=== PATIENT | female | born 1965 | race Caucasian/White ===

== ENCOUNTER → 2016-06-18 | Outpatient (CLI) | payer BC ==
--- NOTE | 2016-06-18 19:36 | PN ---
DATE OF SERVICE: 06/18/2016 51-year-old lady who [facility] of extremely severe obstructive sleep apnea/hypopnea syndrome. Apnea-hypopnea index 96.4 with oxygen desaturation to 57.7%. Recent titration done in March 2016. It was done with a CPAP and BiPAP. It was not easy titration. Patient continued to have abnormalities of respiration, but the best result was reached at the pressure of 12 cm of water. At that pressure, apnea-hypopnea index reduced to 2.1 with oxygen level above 91.5% and the patient was at that pressure for 22.5 minutes in non-REM sleep and 6.5 minutes in REM sleep. That pressure had been ordered for patient's CPAP unit. Today she came with her CPAP unit. CPAP pressure in the unit is 12 cm of water. I checked her CPAP usage. For more than 4 hours it is 15 out of 30 nights. Leak from the mask is 13 L/min, which is borderline. REM is in auto regimen. Apnea-hypopnea index reading from the machine is 28.5, which is in high range. Patient feels better while she is using her machine. She feels more energy. [place] Sleepiness Scale still increased to 11 today. MEDICATIONS: Cymbalta, Xanax, Pravastatin, Abilify. PHYSICAL EXAMINATION: GENERAL: During physical exam, the patient in no distress. VITAL SIGNS: BP 125/80, HR 102, RR 18, weight 213.4. Temp 98.1. Oxygen saturation at room air 94%. HEENT: PERRLA, EOMI. Evaluation of oropharynx showed extremely low position of soft palate. NECK: Supple. No JVD. Thyroid is not palpable. LUNGS: Clear to percussion and to auscultation. Good air exchange. No wheezing or rhonchi. HEART: S1, S2 regular. No murmurs, gallops or rubs. ABDOMEN: Obese. Soft and nontender. Bowel sounds are present. No organomegaly appreciated. EXTREMITIES: No clubbing or cyanosis. STONE DECORATOR: Awake, alert, and oriented x3. Cranial nerves 2 to 7 intact. There is no fasciculation or atrophy noted. No focal deficits observed. IMPRESSION: 1. Extremely severe obstructive sleep apnea/hypopnea syndrome, improved on CPAP at 12 cm of water, but patient still has respiratory abnormalities by reading from the machine, index 28.5 with a central is 15.01. Patient, although, feels better during this sleep and better during the day versus treatment without machine. Amount of her respiratory events comparing with diagnostic sleep study reduced 3 times. 2. Obesity. 3. Hypertension. 4. Hypothyroidism. 5. Acid reflex. 6. Anxiety. 7. Allergies. 8. Back problem. Patient is preparing for back surgery. PLAN: 1. I adjusted regimen in the machine in automatic regimen of CPAP in the range of pressure from 5 to 20 cm of water. I left ramp in automatic regimen at the same regimen as before. 2. Patient will continue to use CPAP every night for the whole night. She prefers to take her CPAP equipment with her to the hospital if she goes for the surgery for her back. 3. No driving if feeling any sleepiness. 4. Follow-up visit in one month to recheck her response on treatment with the machine, if no improvements we may switch patient to the BiPAP machine. She may need treatment with BiPAP in ST mode because she still has central apneas. In that case, we may consider to repeat titration with BiPAP with ST mode. Thank you very much for allowing me to participate in the management of your patient. Sincerely, Donaldo Gutiérrez MD, PhD, FAASM. Diplomat of [employer], Sleep Medicine Board by [employer] [facility] [place]
== END | disposition home or self-care (01) ==
LOC: SLEEP 15:42
PROVIDERS: ATTEND Internal Medicine
DX: G47.33 Obstructive sleep apnea (adult) (pediatric) (principal); E66.9 Obesity, unspecified; I10 Essential (primary) hypertension; E03.9 Hypothyroidism, unspecified; K21.9 Gastro-esophageal reflux disease without esophagitis; F41.9 Anxiety disorder, unspecified; Z79.899 Other long term (current) drug therapy; Z91.09 Other allergy status, other than to drugs and biological substances

== ENCOUNTER 2016-07-01 11:45 | Inpatient (IN) | payer BC ==
[2016-07-09 12:13] VITALS: BMI 33.3
[2016-07-15] MEDS ORDERED: BACITRACIN 50,000 UNIT, POLYMYXIN B 500,000 UNIT in SODIUM CHLORIDE 0.9% IRRIGATIO 1,00... IRRIGATION ONE (05:00)
[2016-07-15] MEDS ORDERED: ceFAZolin 2 GM in SODIUM CHLORIDE 0.9% 100 ML IVPB ONE (05:00)
[2016-07-15] MEDS ORDERED: DEXAMETHASONE SOD PHOSPHATE 10 MG/ML 1 ML VIAL IV ONE (05:55)
[2016-07-15] MEDS ORDERED: MIDAZOLAM 2 MG/2 ML VIAL IV PRN (05:55)
[2016-07-15] MEDS ORDERED: LACTATED RINGERS 1,000 ML IV SCH (05:55)
[2016-07-15] MEDS ORDERED: ONDANSETRON 4 MG/2 ML VIAL IVP ONE (05:55)
[2016-07-15] MEDS ORDERED: SCOPOLAMINE 1.5MG/72HR PATCH TRANSDERM STA (10:33)
[2016-07-15] MEDS ORDERED: LIDOCAINE 1% 20 ML VIAL (10MG/ML) FOR IV START INTRADERMA ONE (10:45)
[2016-07-15] MEDS ORDERED: GLYCOPYRROLATE 0.2 MG/ML 2 ML VIAL ONE (11:55)
[2016-07-15] MEDS ORDERED: SODIUM CHLORIDE 0.9% IRRIG 1,000 ML BTL IRRIGATION ONE (11:55)
[2016-07-15] MEDS ORDERED: HYDROmorphone (PF) 1 MG/ML ONE (11:55)
[2016-07-15] MEDS ORDERED: MIDAZOLAM 2 MG/2 ML VIAL ONE (11:55)
[2016-07-15] MEDS ORDERED: LIDOCAINE 1% INJ 10MG/ML (20 ML MDV) ONE (11:55)
[2016-07-15] MEDS ORDERED: PROPOFOL 10 MG/ML 20 ML VIAL IV ONE (11:55)
[2016-07-15] MEDS ORDERED: SUCCINYLCHOLINE CHLORIDE 100 MG/5 ML SYR IV ONE (11:55)
[2016-07-15] MEDS ORDERED: PHENYLEPHRINE-0.9% NACL SYG 1 MG/10 ML SYRINGE ONE (11:55)
[2016-07-15] MEDS ORDERED: HEPARIN SODIUM,PORCINE 10,000 UNIT/ML 1 ML VIAL ONE (11:55)
[2016-07-15] MEDS ORDERED: fentaNYL (PF) 50 MCG/ML 2 ML AMP ONE (11:55)
[2016-07-15] MEDS ORDERED: GELATIN SPONGE,ABSORB (LARGE) 1 EACH SPONGE TOPICAL ONE (12:31)
[2016-07-15] MEDS: BUPIVACAINE LIPOSOME/PF 1.3% 20 ML, BUPIVACAIN-EPI 0.5%-1:200,000 25 ML, SODIUM CHLORID... MISCELLANE ONE ×6 (12:32→14:34)
[2016-07-15] MEDS ORDERED: LIDOCAINE 0.5%-EPI 1:200,000 50 ML VIAL SQ ONE (12:32)
[2016-07-15] MEDS ORDERED: THROMBIN (BOVINE) 5,000 UNIT VIAL MISCELLANE ONE (12:32)
[2016-07-15] MEDS ORDERED: LACTATED RINGERS 1,000 ML IV ONE (13:00)
--- NOTE | 2016-07-15 14:52 | XR ---
Fluoroscopy History: Lumbar laminectomy and fusion Paper images demonstrate lumbar laminectomy pedicular screws at L4-5. Intervertebral body spacers in place. Alignment appears near anatomic.lumbar fusion, 1min 20sec fl time
--- NOTE | 2016-07-15 15:20 | P.OP ---
Date of Procedure: 07/15/16 Preoperative Diagnosis: Spinal stenosis L4 5, degenerative disc disease L4 5, herniated nucleus pulposis L4 5, Postoperative Diagnosis: Same Anesthesia: GETA Pathology: none sent Condition: stable Disposition: PACU Description of Procedure: DESCRIPTION OF PROCEDURE(S): BRIEF OPERATIVE NOTE Preoperative Diagnosis: Spinal stenosis L4 5, degenerative disc disease L4 5, herniated nucleus pulposis L4 5, Postoperative Diagnosis: Same Procedure: Minimally invasive Laminectomy and decompression L4 5 Minimally invasive Posterior facet fusion L4 5 Minimally invasive Transforaminal lumbar interbody fusion for a 360 fusion Discectomy for decompression L4 5 Placement of interbody graft L4 5 Bone marrow aspiration using a bone marrow aspirate Device Through a separate fascial incision Local autogenous bone grafting Use of Cell Saver Use of bone graft extenders Surgeon: Dr. Galdamez Disability Benefits Specialist: Lucas James is present throughout the entire the case persistence during positioning, dissection, exposure, visualization, and all crucial elements of the case as well as closure. Anesthesia: General anesthesia per Dr. Jones Estimated blood loss: Approximately 100 mL Complications: None apparent Components implanted: K2M minimally invasive [place] pedicle screw system with 2 rods and 1 peek interbody cage with 1 osteoamp allograft sponge Disposition: To recovery room in good stable condition. OPERATIVE INDICATIONS The patient has had long-standing issues in their lower back and lower extremities. The patient has severe disc degeneration at L4 5 with evidence of herniation and stenosis which correlates well with her back and lower extremity symptoms. The patient has been through conservative treatment. She is not having any lasting benefit despite aggressive conservative treatment. At L4 5 We discussed various treatment options including surgery, and the patient wishes to proceed with surgery We discussed the risk, patient's alternatives and benefits of surgery including but not limited to, risk of bleeding risk of infection, risk of need for further surgery, risk of decreased, loss of motion, muscle function, malunion nonunion, hardware failure, nerve damage, paralysis, heart attack, blindness and . OPERATIVE SUMMARY After discussing all the risks, patient alternatives and benefits at length, the patient elected to proceed with surgical intervention, signed informed consent, and presented for their procedure. The patient was seen and examined in the preoperative holding area and the surgical site was marked. The patient was given antibiotics and brought to the operating room. The patient was sedated and intubated by anesthesia in standard fashion. The patient was positioned on to the operating room table in a prone position on the appropriate frame which was well-padded and well molded. We were careful to pad any bony prominences and pressure points. We were careful to maintain the patient's cervical spine and good neutral alignment and position throughout. The patient was prepped and draped in a normal standard fashion. An appropriate timeout and keystone protocol performed. We were able to proceed with the surgery. The local wound area was infiltrated with local anesthetic. I was able utilize C-arm guidance to establish appropriate position over the pedicles bilaterally at the appropriate levels. With the appropriate levels confirmed was able to make small stab incisions over the appropriate pedicle sites bilaterally. Utilizing C-arm in his house able to establish a Jamshidi needle over the lateral aspect of the pedicle and advanced the trocar into the pedicle being careful not to breech superiorly inferiorly medially or laterally. Position was confirmed regularly with AP and lateral images on C- arm. I was able to establish the trocar into the pedicle appropriately into the posterior aspect of the vertebral body bilaterally at the appropriate levels of L4 and 5 bilaterally. This was done at each of the pedicle positions and each of the vertebrae. I was able place the guidewire into the trocar and into the vertebral body appropriately under C-arm guidance. Dissection was taken down over the wire to the appropriate starting position for the screw placed. The appropriate length screw was chosen, threaded over the guidewire and screwed appropriately into the pedicle and vertebral body under C-arm guidance in excellent alignment and position with good bony purchase. This is done at each of the screw sites at the appropriate levels of L4 5. On the left side at the iliac crest through a separate fascial incision I was able to place the bone marrow aspirate device and place it into the iliac crest and withdraw bone marrow aspirate which was placed over the allograft bone graft for use later in the case. With the screws intact I extended the incision to connect the screw hole sites on the most symptomatic side on the left at L4 5. I dissected down to establish access over the pars and lamina to the base of the spinous process. I was able to expose the facet joint. The capsule the facet was taken down and showed some facet arthrosis at the joint. I was able to use a combination of curettes and Kerrison rongeurs and a high-speed drill to take down the facet joint and do a facetectomy. Partial laminectomy was also performed. I was able get excellent foraminal decompression and central decompression with undermining across midline to perform a laminectomy centrally and contralaterally. As able get good central decompression. The ligamentum flavum was taken down to further decompress centrally and at bilateral neural foramen. I was able to expose the disc space and visualize the traversing nerve root. No was made of some disc protrusion at the level causing further compression of the nerve root. I was able to establish a annulotomy at the appropriate level protecting soft tissue and neural structures. No was made of some severe disc desiccation at the disc. I performed a complete discectomy with accommodation of curettes and rasps and scrapers. I was able get good endplate preparation at the disc space. I sized for the appropriate size interbody spacer protecting the soft tissue and neural structures. The wound was copiously irrigated and suctioned dry. There is no evidence of any dural tear or leak. I was able to pack the disc space with local autogenous bone graft as well as a small amount of ostial amp which was also placed into the interbody cage itself. Protecting the soft tissue structures and neural structures I was able place the interbody cage in good alignment and good position with good fit and fill at the interbody space. His issues was confirmed with C-arm guidance. Good hemostasis maintained. There is no evidence of any dural tear or leak. The wound was irrigated and suctioned dry. With the hardware intact, intraoperative C-arm imaging was again taken which showed good alignment and position of the hardware at the appropriate levels. We were then able to measure, contour and place the rods and appropriate hardware bilaterally. I was able to place capcrews, tighten them down, and shear them off appropriately. The sheared portion was counted and accounted for. With this intact I was able to place the local autogenous bone graft with additional bone graft enhancer as necessary into the decorticated facet joint. The remainder of the infuse was placed over the facet joint on the contralateral side after taking down the facet joint capsule. With the bone graft intact, a stable construct, and good decompression at the appropriate levels, we were able to proceed with closure. Good hemostasis was maintained. There is no evidence of dural tear or leak. The fascia was closed for a watertight closure. he subcuticular tissue was closed with absorbable suture. The wound was cleaned and dried and dressed with the appropriate dressing. The drapes were broken down. The patient was gently rolled back onto their hospital bed being careful to maintain their cervical spine and good neutral alignment and position. They were woken up by anesthesia, extubated, and brought to the recovery room in good stable condition. The patient will be admitted to the hospital for appropriate postoperative care , medical management and monitoring. We will continue to follow them closely about the postoperative course.
[2016-07-15] MEDS ORDERED: BENZOCAINE/MENTHOL LOZENG 1 EACH LOZENGE MUCOUS MEM PRN (15:21)
[2016-07-15] MEDS ORDERED: HYDROmorphone 1 MG/ML 1 ML SYRINGE IVP PRN (15:21)
[2016-07-15] MEDS ORDERED: HYDROcodone/APAP 5-325MG 1 EACH TAB PO PRN ×2 (15:21)
[2016-07-15] MEDS ORDERED: ALPRAZolam 0.5 MG TAB PO PRN (15:24)
[2016-07-15] MEDS ORDERED: HYDROcodone/APAP 10-325MG 1 EACH TAB PO PRN (15:24)
[2016-07-15] MEDS: HYDROmorphone 1 MG/ML 1 ML SYRINGE IVP PRN ×3 (16:16→21:10)
[2016-07-15] MEDS: SODIUM CHLORIDE 0.9% 1,000 ML IV SCH (19:06)
[2016-07-15] MEDS: ceFAZolin 2 GM in SODIUM CHLORIDE 0.9% 100 ML IVPB SCH (21:16)
[2016-07-16] MEDS: HYDROmorphone 1 MG/ML 1 ML SYRINGE IVP PRN (04:24)
[2016-07-16] MEDS: ceFAZolin 2 GM in SODIUM CHLORIDE 0.9% 100 ML IVPB SCH (04:46)
[2016-07-16] MEDS: SODIUM CHLORIDE 0.9% 1,000 ML IV SCH ×2 (06:09→11:09)
[2016-07-16] MEDS: ONDANSETRON 4 MG/2 ML VIAL IVP PRN ×2 (06:31→11:01)
[2016-07-16 07:23] LABS: Basophils # (A) 0.1 k/uL (0-0.2); Basophils % (A) 1 %; CH 32.1; CHCM 32.4; Eosinophils % (A) 0 %; HCT 45.4 % (34.0-46.0); HDW 2.61; HGB 14.4 gm/dL (11.4-16.0); Luc # (Auto) 0.19; Luc % (Auto) 1; Lymphocytes # (A) 1.3 k/uL (1.0-4.8); Lymphocytes % (A) 9 %; MCH 31.7 pg (25.0-35.0); MCHC 31.8 g/dL (31.0-37.0); MCV 99.6 fL (80.0-100.0); Mean Platelet Volume 8.1; Monocytes # (A) 0.6 k/uL (0-1.0); Monocytes % (A) 4 %; Neutrophils # (A) 11.7 k/uL (1.3-7.7); Neutrophils % (A) 85 %; RBC 4.56 m/uL (3.80-5.40); RDW 13.5 % (11.5-15.5); WBC 13.9 k/uL (3.8-10.6); WBC (Perox) 14.54
[2016-07-16 07:41] LABS: Anion Gap 7 mmol/L; Blood Urea Nitrogen 13 mg/dL (7-17); Calcium 9.1 mg/dL (8.4-10.2); Carbon Dioxide 30 mmol/L (22-30); Chloride 105 mmol/L (98-107); Glucose 109 mg/dL (74-99); Non-African American GFR(MDRD) 59 (>60 ml/min/1.73 sqM); Potassium 4.5 mmol/L (3.5-5.1); Sodium 142 mmol/L (137-145)
--- NOTE | 2016-07-16 10:16 | P.PN ---
Progress Note - Text Postoperative day #1 Patient is seen and examined today at bedside. The patient has some pain around the surgical site as expected. Pain is being controlled with medication. She has not come out of bed but feels she'll be able to with physical therapy. Physical Exam Afebrile with stable vital signs Abdomen is soft nontender. Chest has good excursion deep and space expiration The incision site is clean dry and intact. No erythema there is no purulence. Dressings at her back are intact without any severe drainage Extremities have not had neurologic change from prior to surgery. She has sustained dorsal flexion plantarflexion and extensor hallucis longus Calves and thighs were soft nontender without evidence of DVT. Assessment/Plan Postoperative day #1 status post decompression and fusion L4 5 with a minimally invasive approach for her severe disc degeneration and stenosis Patient is progressing as expected from the surgery. She has not come out of bed yet but feels she'll be able to with physical therapy. We will continue to increase the patient's mobilization with therapy. We will continue pain control with oral or IV medications. We'll continue to follow patient closely.
[2016-07-16] MEDS: PANTOPRAZOLE 40 MG TABLET PO SCH (10:42)
[2016-07-16] MEDS: DULoxetine HCL 60 MG CAPSULE.DR PO SCH (10:42)
[2016-07-16] MEDS: ARIPiprazole 5 MG TAB PO SCH (10:42)
[2016-07-16] MEDS: LEVOTHYROXINE 50 MCG TAB PO SCH (10:42)
[2016-07-16] MEDS: HYDROcodone/APAP 5-325MG 1 EACH TAB PO PRN ×2 (11:38→21:42)
--- NOTE | 2016-07-16 14:03 | P.CONS ---
History of Present Illness - Reason for Consult Consult date: 07/15/16 Medical management Requesting physician: Agustina Galdamez - Chief Complaint Post laminectomy and decompression of the L4-L5, history of spinal stenosis - History of Present Illness 51-year-old female [address] Lantigua patient with past medical history of hypertension obstructive sleep apnea migraine hypothyroidism and fibromyalgia who had suffered from severe and increased lower back pain for long time with slight numbness and worsening pain and discomfort with weakness of the lower extremity. Patient has been seen Dr. Galdamez and try conservative management for previous time with no success. With her current finding on the MRI consistent with severe spinal stenosis and compression of the L4-L5 patient was scheduled for elective minimal laminectomy and decompression of the L4-L5. Surgery was done today successfully with Dr. Galdamez with no major complication patient was admitted to the floor afterwards her medication were started will be watched hemodynamically continue to watch and control her pain. Review of Systems Constitutional: Reports fatigue, Reports malaise, Reports weakness, Denies as per HPI, Denies anorexia, Denies chills, Denies chronic headaches, Denies chronic pain, Denies daytime sleepiness, Denies fever, Denies lethargy, Denies night sweats, Denies poor appetite, Denies sweats, Denies weight gain, Denies weight loss Eyes: denies as per HPI Ears: deny: decreased hearing Ears, nose, mouth and throat: Reports ant. neck pain, Reports nasal congestion, Reports sinus pain, Reports sinus pressure, Denies as per HPI, Denies bleeding gums, Denies dental pain, Denies dysphagia, Denies epistaxis, Denies headache, Denies hoarseness, Denies mouth pain, Denies nasal discharge, Denies neck fullness/pressure, Denies neck lump, Denies nose pain, Denies odynophagia, Denies post-nasal drip, Denies swelling in mouth, Denies swelling in throat, Denies sore throat, Denies vertigo, Denies voice changes Cardiovascular: Reports edema, Reports high blood pressure, Denies as per HPI, Denies chest pain, Denies claudication, Denies decreased exercise tolerance, Denies dyspnea on exertion, Denies irregular heart beat, Denies leg edema, Denies lightheadedness, Denies orthopnea, Denies palpitations, Denies paroxysmal nocturnal dyspnea, Denies phlebitis, Denies rapid heart beat, Denies shortness of breath, Denies syncope Respiratory: Reports cough, Reports dyspnea, Denies as per HPI, Denies congestion, Denies cough with sputum, Denies excessive sputum, Denies hemoptysis , Denies home oxygen, Denies pain, Denies pain on inspiration, Denies pleurisy, Denies respiratory infections, Denies sleep apnea, Denies snoring, Denies wheezing Gastrointestinal: Reports bloating, Reports early satiety, Reports indigestion, Reports nausea, Denies as per HPI, Denies abdominal pain, Denies belching, Denies BRBPR, Denies change in bowel habits, Denies coffee ground emesis, Denies constipation, Denies diarrhea, Denies dyspepsia, Denies excessive gas, Denies heartburn, Denies hematemesis, Denies hematochezia, Denies jaundice, Denies lactose intolerance, Denies loss of appetite, Denies melena, Denies vomiting Genitourinary: Reports urge incontinence, Reports urinary frequency, Denies as per HPI, Denies abnormal vaginal bleeding, Denies decreased libido, Denies difficulty conceiving, Denies difficulty voiding, Denies dysmenorrhea, Denies dyspareunia, Denies dysuria, Denies flank pain, Denies genital sores, Denies hematuria, Denies hot flashes, Denies incomplete emptying, Denies kidney stones , Denies menorrhagia, Denies mixed incontinence, Denies nocturia, Denies pelvic pain, Denies post void dribbling, Denies , Denies prolapse symptoms, Denies stress incontinence, Denies urgency, Denies vaginal discharge, Denies vaginal dryness, Denies vaginal itching, Denies vaginal odor Menstruation: Denies as per HPI, Denies amenorrhea, Denies amenorrhea on BC, Denies currently menstrual, Denies cycle < 21 days, Denies cycle > 35 days, Denies cycle variable, Denies menses 1-7 days, Denies menses 8 or > days, Denies menses variable, Denies period heavy, Denies period light, Denies period normal, Denies period spotting, Denies post hysterectomy, Denies postmenopausal , Denies premenarcheal Musculoskeletal: Reports loss of height, Reports low back pain, Reports muscle cramps, Reports myalgias, Reports neck pain, Reports neck stiffness, Denies as per HPI, Denies arm numbness/tingling, Denies atrophy, Denies fractures, Denies frequent falls, Denies gait dysfunction, Denies hot joints, Denies leg numbness/ tingling, Denies limitation of motion, Denies morning stiffness, Denies muscle weakness, Denies prior amputations, Denies redness of joints, Denies shooting arm pain, Denies shooting leg pain Integumentary: Reports pruritus, Reports rash, Denies as per HPI, Denies acne, Denies boils, Denies brittle nails, Denies change in hair/nails, Denies color changes, Denies darkening of skin, Denies depigmentation, Denies dryness, Denies foot/leg ulcers, Denies growths, Denies hirsutism, Denies lesions, Denies onychomycosis, Denies sores, Denies striae, Denies unusual bruising, Denies wounds Neurological: Reports numbness, Reports paresthesias, Reports weakness, Denies as per HPI, Denies aphasia, Denies ataxia, Denies balance difficulties, Denies burning pain, Denies change in mentation, Denies change in smell/taste, Denies change in speech, Denies confusion, Denies convulsions, Denies double vision, Denies gait dysfunction, Denies head injury, Denies headaches, Denies hearing difficulties, Denies lack of coordination, Denies loss of vision, Denies memory loss, Denies migraines, Denies motor disturbance, Denies paralysis, Denies seizures, Denies sensory deficit, Denies spasticity, Denies syncope, Denies tic , Denies tingling, Denies transient paralysis, Denies tremors, Denies vertigo, Denies visual changes Psychiatric: Reports anhedonia, Reports depression, Reports sadness/tearfulness , Denies as per HPI, Denies anxiety, Denies anxiety attacks, Denies change in appetite, Denies change in libido, Denies change in sleep habits, Denies confusion, Denies difficulty concentrating, Denies disorientation, Denies hallucinations, Denies hopelessness, Denies hypersomnia, Denies insomnia, Denies irritability, Denies memory loss, Denies mood swings, Denies paranoia, Denies sleep disturbances, Denies suicidal ideation Endocrine: Reports cold intolerance, Reports excessive sweating, Denies as per HPI, Denies deepening of the voice, Denies excessive thirst, Denies fatigue, Denies flushing, Denies heat intolerance, Denies high blood sugars, Denies increase in ring/shoe/hat size, Denies low blood sugars, Denies nocturia, Denies palpitations, Denies polydipsia, Denies polyphagia, Denies polyuria, Denies proptosis, Denies recent glucocorticoid use, Denies thyroid mass, Denies weight change Hematologic/Lymphatic: Denies as per HPI, Denies easy bleeding, Denies easy bruising, Denies lymphadenopathy, Denies lymphedema, Denies thrombophilia Allergic/Immunologic: Denies as per HPI, Denies allergic rhinitis, Denies anaphylaxis, Denies angioedema, Denies gluten intolerance, Denies persistent infections, Denies seasonal allergies, Denies urticaria, Denies wheezing Past Medical History Past Medical History: Fibromyalgia, GERD/Reflux, Hypertension, Sleep Apnea/CPAP/ BIPAP, Thyroid Disorder Additional Past Medical History / Comment(s): migraines, USES CPAP History of Any Multi-Drug Resistant Organisms: None Reported Past Surgical History: Breast Surgery, Orthopedic Surgery Additional Past Surgical History / Comment(s): heart surgery for murmur as , breast biopsy, LT KNEE SCOPE, COLONOSCOPY Past Anesthesia/Blood Transfusion Reactions: Motion Sickness Past Psychological History: Anxiety, Depression Smoking Status: Current every day smoker Past Alcohol Use History: Occasional Additional Past Alcohol Use History / Comment(s): SMOKES 1 PPD SINCE 1991 Past Drug Use History: None Reported - Past Family History Father Family Medical History: Cancer Mother Family Medical History: Deep Vein Thrombosis (DVT) Medications and Allergies Home Medications Medication Instructions Recorded Confirmed Type ALPRAZolam [Xanax] 1 mg PO TID PRN 04/10/15 07/15/16 History Hydrocodone/Acetaminophen [[place] 1 tab PO TID PRN 04/10/15 07/15/16 History 10-325] Ibuprofen [Motrin] 800 mg PO TID PRN 04/10/15 07/15/16 History Levothyroxine Sodium [Synthroid] 50 mcg PO DAILY 04/10/15 07/15/16 History Losartan-Hctz 50-12.5 mg [Hyzaar 1 tab PO DAILY 12/02/15 03/08/17 History 50-12.5] Omeprazole [PriLOSEC] 20 mg PO AC-BRKFST 04/10/15 07/15/16 History ARIPiprazole [Abilify] 5 mg PO DAILY 04/08/16 07/15/16 History DULoxetine HCL [Cymbalta] 120 mg PO DAILY 04/08/16 07/15/16 History Allergies Allergy/AdvReac Type Severity Reaction Status Date / Time No Known Allergies Allergy Verified 07/15/16 10:15 Physical Exam Vitals: Vital Signs Temp Pulse Resp BP Pulse Ox 07/15/16 17:18 97.4 F L 111 H 16 108/58 90 L 07/15/16 16:59 97.4 F L 111 H 16 108/58 90 L 07/15/16 16:30 107 H 16 114/66 94 L 07/15/16 16:15 107 H 16 97/55 92 L 07/15/16 16:00 114 H 16 105/55 95 07/15/16 15:45 112 H 16 123/58 93 L 07/15/16 15:30 105 H 16 130/62 93 L 07/15/16 15:21 98.4 F 104 H 16 98/59 93 L 07/15/16 10:30 97.9 F 94 16 124/79 97 Intake and Output 07/15/16 07/15/16 07/15/16 06:59 14:59 22:59 Intake Total 2000 500 Output Total 300 Balance 1701 500 Intake: IV 2000 500 Output: Urine 200 Estimated Blood Loss 100 - Constitutional General appearance: no average body habitus, cooperative, no disheveled, no mild distress, no morbidly obese, no acute distress, no obese, no severe distress, no thin - EENT Eyes: no abnormal pupil, no anicteric sclerae, no disc margins sharp, no edentulous, no EOMI, no PERRLA, no fundus normal, no photophobia, no dentition normal, no poor dentition, no ptosis, no scleral icterus, no normal appearance ENT: no hard of hearing, no hearing grossly normal, no NA/AT, normal oropharynx , no other, no pharyngeal erythema, no thrush, no tonsillar exudates, no tonsillar swelling Ears: bilateral: normal - Neck Neck: no lymphadenopathy, normal ROM, no other, no rigidity, no stridor, no thyromegaly Carotids: bilateral: upstroke normal Thyroid: bilateral: normal size - Respiratory Respiratory: bilateral: CTA, diminished - Cardiovascular Rhythm: regular Heart sounds: normal: S1, S2 Abnormal Heart Sounds: systolic murmur, no diastolic murmur, no rub, no S3 Gallop, no S4 Gallop, no click, no other - Gastrointestinal General gastrointestinal: no absent bowel sounds, no decreased bowel sounds, no distended, no hepatomegaly, no hyperactive bowel sounds, normal bowel sounds, no organomegaly, no rigid, no scaphoid, soft, no splenomegaly, no tenderness, no umbilical hernia, no ventral hernia - Integumentary Integumentary: no calor, no cellulitis, no cyanotic, no decreased turgor, no flushed, no jaundiced, normal, no normal turgor, pale, rash, no ulcer - Neurologic Neurologic: CNII-XII intact - Musculoskeletal Musculoskeletal: gait normal, generalized weakness, no strength equal bilaterally - Psychiatric Psychiatric: A&O x's 3 Results CBC & Chem 7: 07/16/16 07:02 07/16/16 07:02 Assessment and Plan Plan: 1 post laminectomy and decompression of the L4-L5: Stable post surgery continue current management continue to watch patient hemodynamic status, control pain and resume home meds. DVT and GI prophylaxis protocol will be done. 2 hypertension: Patient is doing well on Hyzaar 50/12.5 mg daily. 3 hypothyroidism: On levothyroxine 50 g daily. 4 depression: Has been on Cymbalta 120 mg a day along with Abilify 5 mg daily. 5 severe GERD: Has been on omeprazole 20 mg daily. 6 chronic pain management: Patient is on Challis and use anti-inflammatory as needed. 7 chronic smoking: Smoking cessation will be done nicotine patch will be order. 8 GI prophylaxis: Patient is on omeprazole. 9 DVT prophylaxis: Patient will be on heparin 5000 units subcutaneous twice a day starting tomorrow. CODE STATUS: Full code. Dr. Galdamez thank you much for the consult if I can be any further help to please let me know thank you.
[2016-07-16] MEDS: LOSARTAN-HCTZ 50-12.5 MG 1 EACH TAB PO SCH (15:05)
[2016-07-16] MEDS: HEPARIN SODIUM,PORCINE 5,000 UNIT/ML 1 ML VIAL SQ SCH ×2 (17:21→23:47)
[2016-07-17] MEDS: HYDROcodone/APAP 5-325MG 1 EACH TAB PO PRN ×3 (05:36→19:50)
[2016-07-17] MEDS: LEVOTHYROXINE 50 MCG TAB PO SCH (06:16)
--- NOTE | 2016-07-17 08:54 | P.PN ---
Progress Note - Text Orthopedic Spine Patient is a pleasant 51-year-old female who is seen and examined at the bedside following minimally invasive posterior lateral decompression and fusion at L4-5 performed Wednesday. Patient states they are doing okay postsurgically. She continues to have some pain at surgical site. She's been able to get up and ambulate the hallways and sit in a bedside chair. Currently does not complain of nausea, vomiting, fever, or chills. She has been quite drowsy and has been having difficulty staying awake. She is receiving [place] 5 mg/325 mg 1 tab every 6-8 hours for pain relief. Per nursing, her pulse ox has been destating down to 78% to 80%. Discussed with the patient will plan for consultation with pulmonology. She is known to be occurring every day smoker. She has not had much of an appetite. She is voiding without difficulty. Physical Exam Lumbar Fusion: Status post surgical day number 2 Patient is awake, alert, and oriented 3 Vital signs stable Good chest excursion with deep inspiration and expiration; currently on 5 L O2 nasal cannula Abdomen soft nontender Dorsiflexion, plantarflexion, and extensor hallucis longus positive sustained bilaterally No signs or symptoms of DVT; no calf pain; pneumatic cuffs intact bilateral lower extremities Dressing is dry and intact; no erythema, purulence, or signs of infection Small area of dried blood on the left incision site Some evidence of bruising at the surgical sites at the superior portion of the incision Neurovascularly intact bilaterally lower extremities Assessment: Minimally invasive Posterior lateral decompression and fusion L4-5 Transforaminal lumbar interbody fusion L4-5 Hypoxia Current every day smoker Plan: 1. Ambulate as tolerated; work with Physical Therapy to increase mobilization 2. Continue pain control with IV and oral medications 3. Telfa and Tegaderm to remain intact; dressing will be changed prior to discharge 4. Medical management can continue to manage patient for patient's other medical issues 5. Currently planned for consultation with Dr. Grier in pulmonology for further evaluation for hypoxia 6. We will continue to follow the patient closely 7. Patient can follow-up with Lucas Thibodeaux PA-C or Dr. Wayne Galdamez at [facility] in 2-3 weeks following discharge
[2016-07-17] MEDS: ARIPiprazole 5 MG TAB PO SCH (09:44)
[2016-07-17] MEDS: HEPARIN SODIUM,PORCINE 5,000 UNIT/ML 1 ML VIAL SQ SCH ×3 (09:44→22:37)
[2016-07-17] MEDS: DULoxetine HCL 60 MG CAPSULE.DR PO SCH (09:44)
[2016-07-17] MEDS: PANTOPRAZOLE 40 MG TABLET PO SCH (09:44)
[2016-07-17] MEDS: LOSARTAN-HCTZ 50-12.5 MG 1 EACH TAB PO SCH (09:44)
[2016-07-17] MEDS: SODIUM CHLORIDE 0.9% 1,000 ML IV SCH (11:16)
[2016-07-17] MEDS ORDERED: IPRATROPIUM-ALBUTEROL 3 ML NEB INHALATION PRN (12:11)
--- NOTE | 2016-07-17 12:11 | P.CNPUL ---
History of Present Illness Consult date: 07/17/16 Requesting physician: Deshaun Lantigua Reason for consult: other (Hypoxia) Chief complaint: Back pain History of present illness: This is a very pleasant 51-year-old female patient who follows with Dr. Lantigua as her primary care physician. She has a history of fibromyalgia, gastroesophageal reflux disease, hypertension, obstructive sleep apnea utilizing CPAP, hypothyroidism, anxiety/depression. She also has a 25-30 year history of smoking. She is not on any inhalers in the outpatient setting other than a rare rescue inhaler. No oxygen. She also has had ongoing issues with back pain with spinal stenosis of L4-5, degenerative disc disease and herniated nucleus pulposus in the same area. She is now status post minimally invasive laminectomy with surgical repair.This is postoperative day #2.we are consulted on the patient today for concerns regarding hypoxia. She has required up to 6 L of high flow nasal cannula to maintain O2 saturations in the 90s. Presently, she is sitting up in the chair at the bedside. She denies any worsening shortness of breath, cough or congestion. She is dyspneic on minimal exertion. No chest pain, palpitations lightheadedness or dizziness. No fever chills or night sweats. Review of Systems 14 point review of system was conducted. All negative other than as mentioned in HPI. Past Medical History Past Medical History: Fibromyalgia, GERD/Reflux, Hypertension, Sleep Apnea/CPAP/ BIPAP, Thyroid Disorder Additional Past Medical History / Comment(s): migraines, USES CPAP History of Any Multi-Drug Resistant Organisms: None Reported Past Surgical History: Breast Surgery, Orthopedic Surgery Additional Past Surgical History / Comment(s): heart surgery for murmur as infant, breast biopsy, LT KNEE SCOPE, COLONOSCOPY Past Anesthesia/Blood Transfusion Reactions: Motion Sickness Past Psychological History: Anxiety, Depression Smoking Status: Current some day smoker Past Alcohol Use History: Occasional Additional Past Alcohol Use History / Comment(s): SMOKES 1 PPD SINCE 1991 Past Drug Use History: None Reported - Past Family History Father Family Medical History: Cancer Mother Family Medical History: Deep Vein Thrombosis (DVT) Medications and Allergies Home Medications Medication Instructions Recorded Confirmed Type ALPRAZolam [Xanax] 1 mg PO TID PRN 04/10/15 07/15/16 History Hydrocodone/Acetaminophen [[place] 1 tab PO TID PRN 04/10/15 07/15/16 History 10-325] Ibuprofen [Motrin] 800 mg PO TID PRN 04/10/15 07/15/16 History Levothyroxine Sodium [Synthroid] 50 mcg PO DAILY 04/10/15 07/15/16 History Losartan-Hctz 50-12.5 mg [Hyzaar 1 tab PO DAILY 04/10/15 07/15/16 History 50-12.5] Omeprazole [PriLOSEC] 20 mg PO AC-BRKFST 04/10/15 07/15/16 History ARIPiprazole [Abilify] 5 mg PO DAILY 04/08/16 07/15/16 History DULoxetine HCL [Cymbalta] 120 mg PO DAILY 04/08/16 07/15/16 History Allergies Allergy/AdvReac Type Severity Reaction Status Date / Time No Known Allergies Allergy Verified 07/15/16 10:15 Physical Exam Vitals: Vital Signs Temp Pulse Resp BP Pulse Ox 07/17/16 11:17 93 L 07/17/16 09:41 90 136/72 07/17/16 07:00 98.0 F 91 18 114/85 90 L 07/17/16 00:00 99 16 07/16/16 21:56 98.6 F 120 H 16 106/55 90 L 07/16/16 18:00 98.8 F 78 16 123/67 07/16/16 16:14 98.2 F 106 H 16 112/71 93 L 07/16/16 15:22 100 16 Intake and Output 07/16/16 07/17/16 07/17/16 22:59 06:59 14:59 Intake Total 225 600 360 Output Total 300 Balance -75 600 360 Intake: IV 225 600 Sodium Chloride 0.9% 1, 225 600 000 ml @ 75 mls/hr IV . [id number] [facility] Rx#:[id number] Oral 360 Output: Urine 300 Other: Voiding Method Indwelling Catheter Toilet # Voids 1 GENERAL EXAM: Alert, active, comfortable in no apparent distress. HEAD: Normocephalic. EYES: Normal reaction of pupils, equal size. NOSE: Clear with pink turbinates. THROAT: There is crowding of the posterior pharynx. No erythema or exudates. NECK: Short. No masses, no JVD. CHEST: No chest wall deformity. LUNGS: Equal air entry with no crackles, wheeze, rhonchi or dullness. Diminished. CVS: S1 and S2 normal with no audible murmurs, regular rhythm. ABDOMEN: No hepatosplenomegaly, normal bowel sounds, no guarding or rigidity. SPINE: dressing to the lower back is clean dry. SKIN: No rashes CENTRAL NERVOUS SYSTEM: No focal deficits, tone is normal in all 4 extremities. Extremities: There is no significant peripheral edema. No clubbing, no cyanosis. Peripheral pulses are intact. Results - Laboratory Findings CBC and BMP: 07/16/16 07:02 07/16/16 07:02 Abnormal lab findings: Abnormal Labs 07/16/16 07/16/16 07:02 07:02 WBC 13.9 H Neutrophils # 11.7 H Glucose 109 H Assessment and Plan Plan: impression: #1 Back pain status post invasive laminectomy with repair of L4-L5., postoperative day #2. #2 Acute hypoxic respiratory failure secondary to above in a patient with chronic and ongoing tobacco dependence and suspected chronic obstructive pulmonary disease, untreated. #3 Chronic and ongoing tobacco dependence. #4 Hypothyroidism. #5 Fibromyalgia. #6 Gastroesophageal reflux disease. #7 Anxiety/depression. Plan: The patient was seen and evaluated by Dr. Grier. We'll obtain a chest x-ray. We'll add bronchodilators 4 times a day and when necessary. We have encouraged the increased use of the incentive spirometer and cough and deep breathing exercises. Will increase her activity as tolerated. We'll attempt to wean down the FiO2 while maintaining O2 saturations greater than 90%. She is educated regarding the importance of complete smoking cessation. She would benefit from a workup in our office to include full pulmonary function testing to evaluate the severity of her suspected COPD and make recommendations for her maintenance medications. We'll continue to follow. Time with Patient: Greater than 30
--- NOTE | 2016-07-17 12:51 | P.PN ---
Subjective 51-year-old female [address] Lantigua patient with past medical history of hypertension obstructive sleep apnea migraine hypothyroidism and fibromyalgia who had suffered from severe and increased lower back pain for long time with slight numbness and worsening pain and discomfort with weakness of the lower extremity. Patient has been seen Dr. Galdamez and try conservative management for previous time with no success. With her current finding on the MRI consistent with severe spinal stenosis and compression of the L4-L5 patient was scheduled for elective minimal laminectomy and decompression of the L4-L5. Surgery was done today successfully with Dr. Galdamez with no major complication patient was admitted to the floor afterwards her medication were started will be watched hemodynamically continue to watch and control her pain. 07/17: Patient had a drop in her pulse ox during the night for which consult was placed with Dr. Grier for evaluation of obstructive sleep apnea. Patient to work with physical therapy and increased activity anticipate discharge home tomorrow. Objective - Vital Signs Vital signs: Vital Signs Temp 98.0 F 07/17/16 07:00 Pulse 91 07/17/16 07:00 Resp 18 07/17/16 07:00 BP 114/85 07/17/16 07:00 Pulse Ox 90 L 07/17/16 07:00 Intake & Output 07/16/16 07/17/16 07/17/16 18:59 06:59 18:59 Intake Total 240 825 Output Total 300 Balance -60 825 Intake: IV 825 Sodium Chloride 0.9% 1, 825 000 ml @ 75 mls/hr IV . [id number] TABITHA Rx#:[id number] Oral 240 Output: Urine 300 Other: Voiding Method Indwelling Catheter Toilet # Voids 1 - Exam General appearance: no average body habitus, cooperative, no disheveled, no mild distress, no morbidly obese, no acute distress, no obese, no severe distress, no thin - EENT Eyes: no abnormal pupil, no anicteric sclerae, no disc margins sharp, no edentulous, no EOMI, no PERRLA, no fundus normal, no photophobia, no dentition normal, no poor dentition, no ptosis, no scleral icterus, no normal appearance ENT: no hard of hearing, no hearing grossly normal, no NA/AT, normal oropharynx , no other, no pharyngeal erythema, no thrush, no tonsillar exudates, no tonsillar swelling Ears: bilateral: normal - Neck Neck: no lymphadenopathy, normal ROM, no other, no rigidity, no stridor, no thyromegaly Carotids: bilateral: upstroke normal Thyroid: bilateral: normal size - Respiratory Respiratory: bilateral: CTA, diminished - Cardiovascular Rhythm: regular Heart sounds: normal: S1, S2 Abnormal Heart Sounds: systolic murmur, no diastolic murmur, no rub, no S3 Gallop, no S4 Gallop, no click, no other - Gastrointestinal General gastrointestinal: no absent bowel sounds, no decreased bowel sounds, no distended, no hepatomegaly, no hyperactive bowel sounds, normal bowel sounds, no organomegaly, no rigid, no scaphoid, soft, no splenomegaly, no tenderness, no umbilical hernia, no ventral hernia - Integumentary Integumentary: no calor, no cellulitis, no cyanotic, no decreased turgor, no flushed, no jaundiced, normal, no normal turgor, pale, rash, no ulcer - Neurologic Neurologic: CNII-XII intact - Musculoskeletal Musculoskeletal: gait normal, generalized weakness, no strength equal bilaterally - Psychiatric Psychiatric: A&O x's 3 - Labs CBC & Chem 7: 07/16/16 07:02 07/16/16 07:02 Assessment and Plan Plan: 1 post laminectomy and decompression of the L4-L5: Stable post surgery continue current management continue to watch patient hemodynamic status, control pain and resume home meds. DVT and GI prophylaxis protocol will be done. 2 hypertension: Patient is doing well on Hyzaar 50/12.5 mg daily. 3 hypothyroidism: On levothyroxine 50 g daily. 4 depression, recurrent: Has been on Cymbalta 120 mg a day along with Abilify 5 mg daily. 5 severe GERD: Has been on omeprazole 20 mg daily. 6 chronic pain management: Patient is on [place] and use anti-inflammatory as needed. 7 chronic smoking: Smoking cessation will be done nicotine patch will be order. 8 GI prophylaxis: Patient is on omeprazole. 9 DVT prophylaxis: Patient will be on heparin 5000 units subcutaneous twice a day starting tomorrow. 10 probable obstructive sleep apnea. Patient will need workup as an outpatient. CODE STATUS: Full code. Discharge plan: Return home Impression and plan of care have been directed as dictated by the signing physician. April Pitts nurse practitioner acting as scribe for signing physician. Time with Patient: Greater than 30
[2016-07-17] MEDS: DIAZEPAM 5 MG TAB PO PRN (15:01)
[2016-07-17] MEDS: IPRATROPIUM-ALBUTEROL 3 ML NEB INHALATION SCH ×2 (15:07→19:04)
--- NOTE | 2016-07-17 16:45 | XR ---
EXAMINATION TYPE: XR chest 1V portable DATE OF EXAM: 07/17/2016 4:39 PM Comparison: 07/09/2016 Clinical History: 51-year-old female with dyspnea, shortness of breath Findings: The heart is normal size. Aorta within normal limits. Mild interstitial prominence appears chronic. S ome hazy density along the left heart margin. No significant pleural effusion seen. Impression: Hazy density along the left heart margin could represent atelectasis or developing infiltrate.
[2016-07-17] MEDS: ACETAMINOPHEN TAB 325 MG TAB PO PRN (17:00)
[2016-07-18] MEDS: DIAZEPAM 5 MG TAB PO PRN ×2 (02:44→15:24)
[2016-07-18] MEDS: HYDROcodone/APAP 5-325MG 1 EACH TAB PO PRN ×3 (02:44→15:19)
[2016-07-18] MEDS: SODIUM CHLORIDE 0.9% 1,000 ML IV SCH ×2 (03:46→15:15)
[2016-07-18] MEDS: LEVOTHYROXINE 50 MCG TAB PO SCH (06:09)
[2016-07-18] MEDS: ACETAMINOPHEN TAB 325 MG TAB PO PRN (06:15)
[2016-07-18] MEDS: DULoxetine HCL 60 MG CAPSULE.DR PO SCH (07:46)
[2016-07-18] MEDS: LOSARTAN-HCTZ 50-12.5 MG 1 EACH TAB PO SCH (07:46)
[2016-07-18] MEDS: HEPARIN SODIUM,PORCINE 5,000 UNIT/ML 1 ML VIAL SQ SCH ×2 (07:46→15:15)
[2016-07-18] MEDS: PANTOPRAZOLE 40 MG TABLET PO SCH (07:46)
[2016-07-18] MEDS: ARIPiprazole 5 MG TAB PO SCH (07:46)
[2016-07-18] MEDS: IPRATROPIUM-ALBUTEROL 3 ML NEB INHALATION SCH ×4 (07:53→19:48)
--- NOTE | 2016-07-18 10:49 | P.PN ---
Subjective 51-year-old female [address] Lantigua patient with past medical history of hypertension obstructive sleep apnea migraine hypothyroidism and fibromyalgia who had suffered from severe and increased lower back pain for long time with slight numbness and worsening pain and discomfort with weakness of the lower extremity. Patient has been seen Dr. Galdamez and try conservative management for previous time with no success. With her current finding on the MRI consistent with severe spinal stenosis and compression of the L4-L5 patient was scheduled for elective minimal laminectomy and decompression of the L4-L5. Surgery was done today successfully with Dr. Galdamez with no major complication patient was admitted to the floor afterwards her medication were started will be watched hemodynamically continue to watch and control her pain. 07/17: Patient had a drop in her pulse ox during the night for which consult was placed with Dr. Grier for evaluation of obstructive sleep apnea. Patient to work with physical therapy and increased activity anticipate discharge home tomorrow. 07/18: Patient has been seen by Dr. Grier with plan for outpatient testing. Patient is ambulating to the bathroom. Pain is improved but she continues to have pain to the area. Anticipate discharge home today. Objective - Vital Signs Vital signs: Vital Signs Temp 97.8 F 07/18/16 07:00 Pulse 87 07/18/16 07:00 Resp 18 07/18/16 07:00 BP 121/60 07/18/16 07:00 Pulse Ox 93 L 07/18/16 07:00 Intake & Output 07/17/16 07/18/16 07/18/16 18:59 06:59 18:59 Intake Total 650 Output Total 300 Balance 650 -300 Intake: Oral 650 Output: Urine 300 Other: Voiding Method Toilet Toilet Toilet # Voids 2 1 - Exam General appearance: no average body habitus, cooperative, no disheveled, no mild distress, no morbidly obese, no acute distress, no obese, no severe distress, no thin - EENT Eyes: no abnormal pupil, no anicteric sclerae, no disc margins sharp, no edentulous, no EOMI, no PERRLA, no fundus normal, no photophobia, no dentition normal, no poor dentition, no ptosis, no scleral icterus, no normal appearance ENT: no hard of hearing, no hearing grossly normal, no NA/AT, normal oropharynx , no other, no pharyngeal erythema, no thrush, no tonsillar exudates, no tonsillar swelling Ears: bilateral: normal - Neck Neck: no lymphadenopathy, normal ROM, no other, no rigidity, no stridor, no thyromegaly Carotids: bilateral: upstroke normal Thyroid: bilateral: normal size - Respiratory Respiratory: bilateral: CTA, diminished - Cardiovascular Rhythm: regular Heart sounds: normal: S1, S2 Abnormal Heart Sounds: systolic murmur, no diastolic murmur, no rub, no S3 Gallop, no S4 Gallop, no click, no other - Gastrointestinal General gastrointestinal: no absent bowel sounds, no decreased bowel sounds, no distended, no hepatomegaly, no hyperactive bowel sounds, normal bowel sounds, no organomegaly, no rigid, no scaphoid, soft, no splenomegaly, no tenderness, no umbilical hernia, no ventral hernia - Integumentary Integumentary: no calor, no cellulitis, no cyanotic, no decreased turgor, no flushed, no jaundiced, normal, no normal turgor, pale, rash, no ulcer - Neurologic Neurologic: CNII-XII intact - Musculoskeletal Musculoskeletal: gait normal, generalized weakness, no strength equal bilaterally - Psychiatric Psychiatric: A&O x's 3 - Labs CBC & Chem 7: 07/16/16 07:02 07/16/16 07:02 Assessment and Plan Plan: 1 post laminectomy and decompression of the L4-L5: Stable post surgery continue current management continue to watch patient hemodynamic status, control pain and resume home meds. DVT and GI prophylaxis protocol will be done. 2 hypertension: Patient is doing well on Hyzaar 50/12.5 mg daily. 3 hypothyroidism: On levothyroxine 50 g daily. 4 depression, recurrent: Has been on Cymbalta 120 mg a day along with Abilify 5 mg daily. 5 severe GERD: Has been on omeprazole 20 mg daily. 6 chronic pain management: Patient is on [place] and use anti-inflammatory as needed. 7 chronic smoking: Smoking cessation will be done nicotine patch will be order. 8 GI prophylaxis: Patient is on omeprazole. 9 DVT prophylaxis: Patient will be on heparin 5000 units subcutaneous twice a day starting tomorrow. 10 probable obstructive sleep apnea. Patient will need workup as an outpatient. CODE STATUS: Full code. Discharge plan: Return home Impression and plan of care have been directed as dictated by the signing physician. April Pitts nurse practitioner acting as scribe for signing physician. Time with Patient: Greater than 30
--- NOTE | 2016-07-18 11:37 | P.PN ---
Progress Note - Text Postoperative day #3 Patient is seen and examined today at bedside. The patient has some pain around the surgical site as expected. Pain is being controlled with medication. She has improved her mobility. She is improving her history status as well and being followed with pulmonology. Physical Exam Afebrile with stable vital signs Abdomen is soft nontender. Chest has good excursion deep and space expiration The incision site is clean dry and intact. No erythema there is no purulence. Her back is clear Extremities have not had neurologic change from prior to surgery. She has sustained dorsal flexion plantarflexion and extensor hallucis longus Calves and thighs were soft nontender without evidence of DVT. Assessment/Plan Postoperative day #3 status post decompression and fusion L4 5 for her degenerative disc disease with spinal stenosis. Patient is progressing as expected from the surgery. She has had some slight delay with her recovery due to her her respirations status is likely due to her chronic tobacco use and it she is being followed with pulmonology and would benefit from further follow-up with him and as outpatient. Her aspirations are improving and hopefully she'll be okay for discharge home tomorrow We will continue to increase the patient's mobilization with therapy. We will continue pain control with oral or IV medications. We'll continue to follow patient closely.
--- NOTE | 2016-07-18 12:09 | P.PN ---
Subjective Progress note dated 07/18/2016 51-year-old female seen yesterday for hypoxemic respiratory failure. A lot of it relates underlying COPD as well as sleep apnea. Patient was not using her CPAP device. She status post laminectomy L4-L5. She is postop day #3. While on the CPAP, doing much better. Has history of chronic and ongoing tobacco dependence hypothyroidism fibromyalgia GERD and anxiety. Objective - Vital Signs Vital signs: Vital Signs Temp 97.8 F 07/18/16 07:00 Pulse 103 H 07/18/16 11:19 Resp 18 07/18/16 07:00 BP 121/60 07/18/16 07:00 Pulse Ox 93 L 07/18/16 07:00 Intake & Output 07/17/16 07/18/16 07/18/16 18:59 06:59 18:59 Intake Total 650 200 Output Total 300 Balance 650 -300 200 Intake: Oral 650 200 Output: Urine 300 Other: Voiding Method Toilet Toilet Toilet # Voids 2 1 - Exam No acute distress, on nasal O2. Getting a breathing treatment. HEENT examination is grossly unremarkable. Mucous members are moist. No oral lesions. Supple. Full range of motion. No adenopathy or thyromegaly. Cardiovascular examination reveals regular rhythm rate. S1-S2 normal. Lungs clear breath sounds equal. No wheezes rhonchi. No crackles. Abdomen soft bowel sounds are heard. Extremities are intact. - Labs CBC & Chem 7: 07/16/16 07:02 07/16/16 07:02 Assessment and Plan (1) COPD exacerbation Status: Acute (2) H/O laminectomy Status: Acute (3) Sleep apnea syndrome Status: Acute Plan: Plan dated 07/18/2016 X The patient is doing well. She probably will be discharged tomorrow. The patient's chest x-ray show some basal atelectasis. She feeling much better. Saturations are much improved. She knows to use her CPAP at nighttime. We'll continue with updrafts. No additional recommendations are made. Time with Patient: Less than 30
[2016-07-19] MEDS: HEPARIN SODIUM,PORCINE 5,000 UNIT/ML 1 ML VIAL SQ SCH ×4 (00:16→23:32)
[2016-07-19] MEDS: HYDROcodone/APAP 5-325MG 1 EACH TAB PO PRN ×3 (00:21→21:01)
[2016-07-19] MEDS: DIAZEPAM 5 MG TAB PO PRN ×3 (00:21→21:02)
[2016-07-19] MEDS: SODIUM CHLORIDE 0.9% 1,000 ML IV SCH ×2 (03:59→17:41)
[2016-07-19] MEDS: LEVOTHYROXINE 50 MCG TAB PO SCH (06:21)
[2016-07-19] MEDS: LOSARTAN-HCTZ 50-12.5 MG 1 EACH TAB PO SCH (07:49)
[2016-07-19] MEDS: DULoxetine HCL 60 MG CAPSULE.DR PO SCH (07:49)
[2016-07-19] MEDS: PANTOPRAZOLE 40 MG TABLET PO SCH (07:50)
[2016-07-19] MEDS: ARIPiprazole 5 MG TAB PO SCH (07:50)
[2016-07-19] MEDS: IPRATROPIUM-ALBUTEROL 3 ML NEB INHALATION SCH ×4 (08:37→20:26)
--- NOTE | 2016-07-19 10:24 | P.PN ---
Subjective 51-year-old female [address] Lantigua patient with past medical history of hypertension obstructive sleep apnea migraine hypothyroidism and fibromyalgia who had suffered from severe and increased lower back pain for long time with slight numbness and worsening pain and discomfort with weakness of the lower extremity. Patient has been seen Dr. Galdamez and try conservative management for previous time with no success. With her current finding on the MRI consistent with severe spinal stenosis and compression of the L4-L5 patient was scheduled for elective minimal laminectomy and decompression of the L4-L5. Surgery was done today successfully with Dr. Galdamez with no major complication patient was admitted to the floor afterwards her medication were started will be watched hemodynamically continue to watch and control her pain. 07/17: Patient had a drop in her pulse ox during the night for which consult was placed with Dr. Grier for evaluation of obstructive sleep apnea. Patient to work with physical therapy and increased activity anticipate discharge home tomorrow. 07/18: Patient has been seen by Dr. Grier with plan for outpatient testing. Patient is ambulating to the bathroom. Pain is improved but she continues to have pain to the area. Anticipate discharge home today. 07/19: Pulse ox was 93% on room air. Patient states that she does not feel ready to go home due to her respiratory status. Patient is followed by Dr. Grier. She has been maintained on DuoNeb treatments and patient instructed to use CPAP. Encourage incentive spirometry. Objective - Vital Signs Vital signs: Vital Signs Temp 98.0 F 07/19/16 07:00 Pulse 80 07/19/16 07:00 Resp 18 07/19/16 07:00 BP 114/65 07/19/16 07:00 Pulse Ox 93 L 07/19/16 07:00 Intake & Output 07/18/16 07/19/16 07/19/16 17:59 06:59 18:59 Intake Total Output Total Balance Intake: IV Sodium Chloride 0.9% 1, 000 ml @ 75 mls/hr IV . [id number] TABITHA Rx#:[id number] Oral Output: Urine Other: Voiding Method Toilet # Voids - Exam General appearance: no average body habitus, cooperative, no disheveled, no mild distress, no morbidly obese, no acute distress, no obese, no severe distress, no thin - EENT Eyes: no abnormal pupil, no anicteric sclerae, no disc margins sharp, no edentulous, no EOMI, no PERRLA, no fundus normal, no photophobia, no dentition normal, no poor dentition, no ptosis, no scleral icterus, no normal appearance ENT: no hard of hearing, no hearing grossly normal, no NA/AT, normal oropharynx , no other, no pharyngeal erythema, no thrush, no tonsillar exudates, no tonsillar swelling Ears: bilateral: normal - Neck Neck: no lymphadenopathy, normal ROM, no other, no rigidity, no stridor, no thyromegaly Carotids: bilateral: upstroke normal Thyroid: bilateral: normal size - Respiratory Respiratory: bilateral: CTA, diminished - Cardiovascular Rhythm: regular Heart sounds: normal: S1, S2 Abnormal Heart Sounds: systolic murmur, no diastolic murmur, no rub, no S3 Gallop, no S4 Gallop, no click, no other - Gastrointestinal General gastrointestinal: no absent bowel sounds, no decreased bowel sounds, no distended, no hepatomegaly, no hyperactive bowel sounds, normal bowel sounds, no organomegaly, no rigid, no scaphoid, soft, no splenomegaly, no tenderness, no umbilical hernia, no ventral hernia - Integumentary Integumentary: no calor, no cellulitis, no cyanotic, no decreased turgor, no flushed, no jaundiced, normal, no normal turgor, pale, rash, no ulcer - Neurologic Neurologic: CNII-XII intact - Musculoskeletal Musculoskeletal: gait normal, generalized weakness, no strength equal bilaterally - Psychiatric Psychiatric: A&O x's 3 - Labs CBC & Chem 7: 07/16/16 07:02 07/16/16 07:02 Assessment and Plan Plan: 1 post laminectomy and decompression of the L4-L5: Stable post surgery continue current management continue to watch patient hemodynamic status, control pain and resume home meds. DVT and GI prophylaxis protocol will be done. 2 hypertension: Patient is doing well on Hyzaar 50/12.5 mg daily. 3 hypothyroidism: On levothyroxine 50 g daily. 4 depression, recurrent: Has been on Cymbalta 120 mg a day along with Abilify 5 mg daily. 5 severe GERD: Has been on omeprazole 20 mg daily. 6 chronic pain management: Patient is on [place] and use anti-inflammatory as needed. 7 chronic smoking: Smoking cessation will be done nicotine patch will be order. 8 GI prophylaxis: Patient is on omeprazole. 9 DVT prophylaxis: Patient will be on heparin 5000 units subcutaneous twice a day starting tomorrow. 10 obstructive sleep apnea. With CPAP. CODE STATUS: Full code. Discharge plan: Return home Impression and plan of care have been directed as dictated by the signing physician. April Pitts nurse practitioner acting as scribe for signing physician. Time with Patient: Greater than 30
--- NOTE | 2016-07-19 12:50 | P.PN ---
Progress Note - Text Postoperative day #4 Patient is seen and examined today at bedside. The patient has some pain around the surgical site as expected. Pain is being controlled with medication. Her breathing is improved but she is still quite anxious about trying to get along by herself at home. She has a chronic smoking history and has not been smoking here in the hospital and I think this is a good start for her to try to quit. She does not feel ready to go home Physical Exam Afebrile with stable vital signs Abdomen is soft nontender. Chest has good excursion deep and space expiration The incision site is clean dry and intact. No erythema there is no purulence. There is some bruising around the incision sites but they appear to be healing appropriately at her back Extremities have not had neurologic change from prior to surgery. She has sustained dorsal flexion plantarflexion and extensor hallucis longus Calves and thighs were soft nontender without evidence of DVT. Assessment/Plan Postoperative day #4 status post minimally invasive decompression and fusion L4 5 for her severe disc degeneration and stenosis Patient is progressing somewhat slowly from the surgery. Her respirations have improved. She is working on quitting smoking and being in hospital seems to be helping her somewhat. She does not feel ready to go home due to her pain and inability to get around. She has not yet had a bowel movement and I would like her to have a bowel movement prior to discharge. I think she'll be okay for discharge home on Wednesday morning. We will continue to increase the patient's mobilization with therapy. We will continue pain control with oral or IV medications. We'll continue to follow patient closely.
[2016-07-19] MEDS ORDERED: MAGNESIUM HYDROXIDE 2,400 MG/10 ML CUP PO PRN (17:43)
[2016-07-19] MEDS: MAGNESIUM HYDROXIDE 2,400 MG/10 ML CUP PO PRN (17:52)
[2016-07-19 22:40] VITALS: RESP 16
[2016-07-20] MEDS: HYDROcodone/APAP 5-325MG 1 EACH TAB PO PRN ×3 (02:30→15:55)
[2016-07-20] MEDS: LEVOTHYROXINE 50 MCG TAB PO SCH (06:15)
[2016-07-20] MEDS: IPRATROPIUM-ALBUTEROL 3 ML NEB INHALATION SCH ×3 (07:07→15:18)
--- NOTE | 2016-07-20 08:41 | P.DS ---
Providers Date of admission: 07/15/16 10:05 Expected date of discharge: 07/20/16 Attending physician: Agustina Galdamez Consults: 07/15/16 15:21 Consult Physician Routine Consulting Provider: Sammy Lopez Consult Reason/Comments: Medical management Do you want consulting provider notified?: Already Contacted 07/17/16 08:55 Consult Physician Routine Consulting Provider: Will Grier Reason/Comments: Hypoxia; Oxygen levels intermittently dropping to 78 % to 80% Do you want consulting provider notified?: Yes Primary care physician: Deshaun Lantigua - Discharge Diagnosis(es) (1) Spinal stenosis at L4-L5 level Current Visit: Yes Status: Acute (2) Herniated nucleus pulposus, L4-5 Current Visit: Yes Status: Acute (3) Lumbar degenerative disc disease Current Visit: Yes Status: Acute (4) Arthrodesis status Current Visit: Yes Status: Acute (5) Hypoxia Current Visit: Yes Status: Acute (6) H/O laminectomy Current Visit: Yes Status: Acute Hospital Course: This is a pleasant 51-year-old female who presented with L4-5 spinal canal stenosis, herniated nucleus pulposus, and degenerative disc disease who failed outpatient conservative therapy. She admitted for a minimally invasive posterior lateral decompression and fusion with transforaminal lumbar interbody fusion L4-5. The patient tolerated the procedure. She has been progressing slowly postsurgically. Following surgery she was experiencing acute hypoxic respiratory failure and has been seen and examined by pulmonology. She is known to be a chronic and ongoing tobacco user. Her hypoxia has improved. She' s play follow-up pulmonology in the outpatient setting. She has not smoked since being admitted to hospital and feels is going okay. She states she continues to have some difficulty getting out of bed due to back pain, but states when she is able to do so she has been ambulating better. She has not had much of an appetite but was able to eat dinner last night. She still has not had a bowel movement since admittance. We will currently planned for her to eat breakfast this morning, continue increasing mobility physical therapy, and we'll plan for discharge this afternoon if she is able to have a bowel movement prior to discharge. Condition on day of discharge stable. Patient will be discharged home. Patient was cleared preoperatively for surgery by Dr. Lantigua. Patient currently denies any nausea, vomiting, fever, or chills. Patient is eating and voiding freely without difficulty. Tegaderm dressing has been removed. Patient may shower without a dressing intact at this time. Patient should refrain from driving until at least after their first follow-up appointment in the office. Patient should avoid excessive bending, lifting, and twisting; no lifting greater than 10 pounds. Patient will be given a prescription for Samaria 10 mg/325 mg 1 tab every 8 hours as needed for pain. She may resume previous medications as prescribed but should refrain from taking ibuprofen 800 mg for at least 6 weeks postsurgically. She'll plan to follow with Dr. Grier in pulmonology in the outpatient setting for further evaluation. Physical Exam on day of discharge: Patient is awake, alert, and oriented 3 Vital signs stable Good chest excursion with deep inspiration and expiration Abdomen soft nontender No signs or symptoms of DVT; no calf pain Extensor hallucis longus, plantarflexion, and dorsiflexion positive sustained bilateral lower extremities Incision is clean, dry, and intact; no erythema, purulence, or signs of infection; Tegaderm removed during physical examination Evidence of bruising around the surgical sites bilaterally Pneumatic cuffs intact bilateral lower extremities Procedures: Minimally invasive posterior lateral decompression and fusion with transforaminal lumbar interbody fusion L4-5 Patient Condition at Discharge: Stable Plan - Discharge Summary New Discharge Prescriptions: HYDROcodone/APAP 10-325MG [Samaria 10] 1 each PO Q8H PRN #90 tab PRN Reason: Pain Discharge Medication List ALPRAZolam [Xanax] 1 mg PO TID PRN 04/10/15 [History] Hydrocodone/Acetaminophen [Samaria 10-325] 1 tab PO TID PRN 04/10/15 [History] Ibuprofen [Motrin] 800 mg PO TID PRN 04/10/15 [History] Levothyroxine Sodium [Synthroid] 50 mcg PO DAILY 04/10/15 [History] Losartan-Hctz 50-12.5 mg [Hyzaar 50-12.5] 1 tab PO DAILY 04/10/15 [History] Omeprazole [PriLOSEC] 20 mg PO AC-BRKFST 04/10/15 [History] ARIPiprazole [Abilify] 5 mg PO DAILY 04/08/16 [History] DULoxetine HCL [Cymbalta] 120 mg PO DAILY 04/08/16 [History] HYDROcodone/APAP 10-325MG [Samaria 10] 1 each PO Q8H PRN #90 tab 07/20/16 [Rx] Follow up Appointment(s)/Referral(s): Lucas Thibodeaux PAC [PHYSICIAN REAL ESTATE INTERN] - 2 Weeks (Patient may follow-up with Lucas Thibodeaux PA-C or Dr. Wayne Galdamez at [facility] in 2-3 weeks following discharge. ) Will Grier DO [Doctor of Osteopathic Medicine] - 2 Weeks Deshaun Lantigua DO [Primary Care Provider] - 1 Week Activity/Diet/Wound Care/Special Instructions: 1. Patient may shower without a dressing intact at this time 2. Patient should refrain from driving until at least after their first follow- up appointment in the office. 3. Patient should avoid excessive bending, twisting, and lifting; no lifting greater than 10 pounds 4. Do not soak in tub Incentive Spirometry 10x every hour while awake. Discharge Disposition: HOME SELF-CARE
[2016-07-20] MEDS: ARIPiprazole 5 MG TAB PO SCH (08:48)
[2016-07-20] MEDS: DULoxetine HCL 60 MG CAPSULE.DR PO SCH (08:48)
[2016-07-20] MEDS: PANTOPRAZOLE 40 MG TABLET PO SCH (08:48)
[2016-07-20] MEDS: LOSARTAN-HCTZ 50-12.5 MG 1 EACH TAB PO SCH (08:48)
[2016-07-20] MEDS: HEPARIN SODIUM,PORCINE 5,000 UNIT/ML 1 ML VIAL SQ SCH (08:49)
[2016-07-20] MEDS: MAGNESIUM HYDROXIDE 2,400 MG/10 ML CUP PO PRN (08:56)
[2016-07-20] MEDS ORDERED: BISACODYL 10 MG SUPP RECTAL STA (11:42)
[2016-07-20 16:51] VITALS: BP 122/78; PULSE 101; TEMP 98.2
== END 2016-07-20 18:05 | disposition home or self-care (01) | DRG 459 ==
LOC: 2ORMAIN 07-15 10:05 → 5MS5E 07-15 15:05
PROVIDERS: ADMIT Orthopaedic Surgery Orthopaedic Surgery of the Spine; ATTEND Orthopaedic Surgery Orthopaedic Surgery of the Spine
PROC: 0SG0071 Fusion of Lumbar Vertebral Joint with Autologous Tissue Substitute, Posterior Approach, Posterior Column, Open Approach (ICD-10-PCS; principal; 2016-07-15 11:30)
PROC: 0SG00AJ Fusion of Lumbar Vertebral Joint with Interbody Fusion Device, Posterior Approach, Anterior Column, Open Approach (ICD-10-PCS; principal; 2016-07-15 11:30)
PROC: 0ST20ZZ Resection of Lumbar Vertebral Disc, Open Approach (ICD-10-PCS; principal; 2016-07-15 11:30)
PROC: 07DR3ZZ Extraction of Iliac Bone Marrow, Percutaneous Approach (ICD-10-PCS; principal; 2016-07-15 11:30)
DX: M51.26 Other intervertebral disc displacement, lumbar region (principal); J96.01 Acute respiratory failure with hypoxia; J44.1 Chronic obstructive pulmonary disease with (acute) exacerbation; M48.06 Spinal stenosis, lumbar region; M51.36 Other intervertebral disc degeneration, lumbar region; I10 Essential (primary) hypertension; F39 Unspecified mood [affective] disorder; M79.7 Fibromyalgia; G43.909 Migraine, unspecified, not intractable, without status migrainosus; E03.9 Hypothyroidism, unspecified; F32.9 Major depressive disorder, single episode, unspecified; F41.9 Anxiety disorder, unspecified; G47.33 Obstructive sleep apnea (adult) (pediatric); K21.9 Gastro-esophageal reflux disease without esophagitis; G89.29 Other chronic pain; E66.01 Morbid (severe) obesity due to excess calories; Z72.0 Tobacco use; Z68.34 Body mass index [BMI] 34.0-34.9, adult; Z79.899 Other long term (current) drug therapy
CPT/HCPCS: 71010; 71020; 72100; 80048; 81003; 85025; 85610; 85730; 86850; 86891; 86900; 86901; 87070; 94640; 94660; 94760

== ENCOUNTER → 2016-07-09 | Outpatient (CLI) | payer BC ==
[2016-07-09 14:19] LABS: Appearance,Urine Clear (Clear); Basophils # (A) 0.1 k/uL (0-0.2); Basophils % (A) 1 %; Bilirubin,Urine Negative (Negative); CH 32.6; CHCM 34.6; Eosinophils # (A) 0.2 k/uL (0-0.7); Eosinophils % (A) 3 %; Glucose,Urine (UA) Negative (Negative); HDW 2.63; HGB 16.6 gm/dL (11.4-16.0); Ketones,Urine Negative (Negative); Leukocyte Esterase,Urine Negative (Negative); Luc # (Auto) 0.24; Luc % (Auto) 3; Lymphocytes # (A) 2.6 k/uL (1.0-4.8); Lymphocytes % (A) 36 %; MCH 31.5 pg (25.0-35.0); MCHC 33.3 g/dL (31.0-37.0); MCV 94.7 fL (80.0-100.0); Mean Platelet Volume 9.3; Monocytes # (A) 0.4 k/uL (0-1.0); Monocytes % (A) 6 %; Neutrophils # (A) 3.8 k/uL (1.3-7.7); Neutrophils % (A) 51 %; Nitrite,Urine Negative (Negative); Protein,Urine Trace (Negative); RBC 5.28 m/uL (3.80-5.40); RDW 13.5 % (11.5-15.5); Specific Gravity,Urine 1.018 (1.001-1.035); UA Billing (MACRO vs. MICRO) CHEM; WBC 7.4 k/uL (3.8-10.6); WBC (Perox) 7.78
[2016-07-09 14:26] LABS: Partial Thromboplastin Time 22.8 sec (22.0-30.0); Prothrombin Time 10.2 sec (9.0-12.0)
[2016-07-09 14:32] LABS: Calcium 10.1 mg/dL (8.4-10.2); Potassium 3.9 mmol/L (3.5-5.1)
--- NOTE | 2016-07-09 14:43 | XR ---
EXAMINATION TYPE: XR chest 2V DATE OF EXAM: 07/09/2016 2:35 PM COMPARISON: 04/18/2013 TECHNIQUE: PA and lateral views submitted. HISTORY: Presurgical FINDINGS: The lungs are clear and there is no pneumothorax, pleural effusion, or focal pneumonia. Hyperinflati on suggests COPD. IMPRESSION: 1. No acute process.
== END | disposition home or self-care (01) ==
LOC: LABPAT 13:44
PROVIDERS: ATTEND Orthopaedic Surgery Orthopaedic Surgery of the Spine
DX: Z01.818 Encounter for other preprocedural examination (principal); Z01.810 Encounter for preprocedural cardiovascular examination; Z01.812 Encounter for preprocedural laboratory examination
CPT/HCPCS: 71020; 80048; 81003; 85025; 85610; 85730; 87070

== ENCOUNTER → 2016-08-07 | Outpatient (CLI) | payer BC ==
--- NOTE | 2016-08-07 10:10 | XR ---
EXAMINATION TYPE: XR chest 2V DATE OF EXAM: 08/07/2016 9:46 AM HISTORY: G43.709/R41.3/R05 cough. REFERENCE: Previous study dated 07/17/2016. FINDINGS: There continues to be some haziness to the left heart border. No definite consolidation is seen. Pleural spaces are clear. Heart size is normal. IMPRESSION: MINIMAL HAZINESS OF THE LEFT HEART BORDER WITHOUT DEFINITE EVIDENCE OF CONSOLIDATION OR OTHER ACUTE P ULMONARY ABNORMALITY.
--- NOTE | 2016-08-07 10:47 | US ---
EXAMINATION TYPE: US carotid duplex BILAT DATE OF EXAM: 08/07/2016 10:27 AM COMPARISON: NONE CLINICAL HISTORY: R554 syncope,I65.23 red carotid occlusive. EXAM MEASUREMENTS: RIGHT: Peak Systolic Velocity (PSV) cm/sec ----- Right CCA: 111.3 ----- Right ICA: 91.0 ----- Right ECA: 120.0 ICA/CCA ratio: 0.8 RIGHT: End Diastole cm/sec ----- Right CCA: 44.5 ----- Right ICA: 43.0 ----- Right ECA: 59.0 LEFT: Peak Systolic Velocity (PSV) cm/sec ----- Left CCA: 80.9 ----- Left ICA: 89.7 ----- Left ECA: 89.8 ICA/CCA ratio: 1.1 LEFT: End Diastole cm/sec ----- Left CCA: 29.2 ----- Left ICA: 34.7 ----- Left ECA: 25.2 VERTEBRALS (direction of flow): Right Vertebral: Antegrade Left Vertebral: Antegrade No atherosclerotic changes No hemodynamic stenosis IMPRESSION: I DO NOT SEE EVIDENCE OF A HEMODYNAMICALLY SIGNIFICANT STENOSIS IN EITHER CAROTID SYSTEM. Criteria for Assigning % of Stenosis / Diameter reduction (Estimation based on the indirect measurements of the internal carotid artery velocities (ICA PSV). 1. Normal (no stenosis)=ICA PSV < 125 cm/s: ratio < 2.0: ICA EDV<40 cm/s. 2. Less than 50% stenosis=ICA PSV < 125 cm/s: ratio < 2.0: ICA EDV<40 cm/s. 3. 50 to 69% stenosis=ICA PSV of 125 to 230 cm/s: ration 2.0 ? 4.0: ICA EDV 40-100 cm/s. 4. Greater than 70% stenosis to near occlusion= ICA PSV > 230 cm/s: ratio > 4.0: ICA EDV > 100 cm/s. 5. Near occlusion= ICA PSV velocities may be low or undetectable: variable ratio and ICA EDV. 6. Total occlusion=unable to detect flow.
== END | disposition home or self-care (01) ==
LOC: RADUSMAIN 09:31
PROVIDERS: ATTEND Family Medicine
DX: R05 Cough (principal); G43.709 Chronic migraine without aura, not intractable, without status migrainosus; R41.3 Other amnesia; I65.23 Occlusion and stenosis of bilateral carotid arteries; R55 Syncope and collapse
CPT/HCPCS: 71020; 93880

== ENCOUNTER → 2016-08-11 | Outpatient (CLI) | payer BC ==
--- NOTE | 2016-08-11 19:20 | CT ---
EXAMINATION TYPE: CT brain wo con DATE OF EXAM: 08/11/2016 5:56 PM COMPARISON: 12/18/2014 HISTORY: Pt states of OSORIO x1 month after back sx. CT DLP: 1135 mGycm Automated exposure control for dose reduction was used. FINDINGS: Ventricles are fairly normal size. There is no mass effect nor midline shift. There is no sign of int racranial hemorrhage. The calvarium is intact. IMPRESSION: Negative unenhanced head CT scan. No change.
== END | disposition home or self-care (01) ==
LOC: RADCTMAIN 17:28
PROVIDERS: ATTEND Family Medicine
DX: G43.909 Migraine, unspecified, not intractable, without status migrainosus (principal)
CPT/HCPCS: 70450

== ENCOUNTER → 2016-08-25 | Outpatient (CLI) | payer BC ==
--- NOTE | 2016-08-25 19:39 | PN ---
This is a 51-year-old female patient who follows up with Dr. Grier in our office. The patient also sees Dr. Gutiérrez here at the sleep center and recently she decided to switch to my service based on the fact that her CPAP treatment was not successful. In summary, the patient was diagnosed having severe obstructive sleep apnea and she was found to have an AHI of 96.4 with significant nocturnal oxygen desaturation with pulse ox going as low as 57% and this was based on study that was done in 2016. Following that, the patient underwent a CPAP titration. The titration itself was ineffective. I went over the titration and base pressures that were used to eliminate obstructive sleep apnea were ineffective. Note that the patient also had treatment emergent central sleep apnea that was noted during the titration. The patient was given a brief BiPAP trial which seemed to be better than CPAP therapy. However, Dr. Gutiérrez ordered a CPAP machine for this patient, and ultimately she was started on a CPAP pressure of 12 cm of water. In followup, her treatment was not successful and the patient was still having increased hypersomnia and sleepiness and she was having a considerable amount of central apneas while on CPAP therapy. As such, the patient was switched to an auto CPAP unit with a minimum pressure of 5 and a maximum pressure of 20. Yet again, the treatment remained unsuccessful. The patient has been using the CPAP every night and she has been averaging around 6.1 hours of CPAP use; however, her AHI remains high at 33.6. She is still having considerable amount of leaks around the mask and her leak factor is at 40 L/min. As such, the patient decided to come to me for further advice. No history of any congestive heart failure. No history of cardiac arrhythmias. No history of any narcotic intake. No substance abuse. No alcoholism. She is obese and she is known to have hypertension, hypothyroidism and reflux along with chronic back pain. I understand that she is on disability for now on the basis of her chronic back pain and depression. She weighs around 212 pounds and her BMI is 35.2. She is somnolent and sleepy and Medon score remains elevated at this point. REVIEW OF SYSTEMS: Twelve-point review of systems was done. Positive findings are mentioned above in history of present illness. In general, among the positive findings are increased sleepiness and tiredness and fatigue along with snoring while on CPAP therapy along with leaks around the mask. No major restlessness in the lower extremities, numbness or tingling and leg kicks overnight. No sleepwalking. No sleep-talking. No nocturnal chest pain, heartburn or shortness of breath. BP is 143/111, pulse is 110, respirations 16, temperature 97.7, saturation 97% on room air. BMI is 35.2. Weight is 212. Height is 5 feet 5 inches. GENERAL APPEARANCE: Calm, comfortable. HEENT: Mallampati Class IV. There is no goiter or neck mass. LUNGS: Clear to auscultation. HEART: Sounds are regular rate and rhythm. Normal S1 and S2. No S3 or S4. No murmurs. ABDOMEN: Soft, nontender. No organomegaly. EXTREMITIES: No edema. No cyanosis or clubbing. IMPRESSION: 1. Severe symptomatic obstructive sleep apnea, failed continuous positive airway pressure therapy based on treatment emergent central apneas. 2. Chronic hypersomnia and sleepiness unchanged with continuous positive airway pressure therapy due to failed treatment. 3. Obesity, body mass index of 35. 4. Chronic hypersomnia. 5. Hypertension. 6. Hypothyroidism. 7. Chronic back pain. 8. Chronic anxiety disorder/depression. PLAN: Based on my review, the patient has failed CPAP therapy and the patient needs to be switched to either a BiPAP or an ASV mode of ventilation. As such, I am asking the patient to come back to the sleep center to undergo another titration. The patient will have a BiPAP titration and she will be upgraded to an ASV mode of ventilation if the BiPAP fails. At the same time, the patient will benefit from a full face mask, knowing that her current mask is causing a significant amount of leaks. If the treatment is successful, the patient will be upgraded to an alternative machine. She is aware of this and the patient will undergo the study and further recommendations are to follow.
== END | disposition home or self-care (01) ==
LOC: SLEEP 14:28
PROVIDERS: ATTEND Internal Medicine Critical Care Medicine
DX: G47.33 Obstructive sleep apnea (adult) (pediatric) (principal); G47.13 Recurrent hypersomnia; E66.9 Obesity, unspecified; Z68.35 Body mass index [BMI] 35.0-35.9, adult; I10 Essential (primary) hypertension; E03.9 Hypothyroidism, unspecified; G89.29 Other chronic pain; M54.9 Dorsalgia, unspecified; F41.9 Anxiety disorder, unspecified; F32.9 Major depressive disorder, single episode, unspecified

== ENCOUNTER → 2016-09-17 | Outpatient (CLI) | payer BC ==
--- NOTE | 2016-09-17 13:54 | MR ---
EXAMINATION TYPE: MR cervical spine wo con DATE OF EXAM: 09/17/2016 1:20 PM COMPARISON: NONE HISTORY: spondylosis with myelopathy,1Weakness TECHNIQUE: Multiplanar, multisequence images of the cervical spine were acquired. C2-C3: No evidence for degenerative disc disease. No disc bulge/herniation or protrusion. No Canal stenosis. Foramina are patent bilaterally. C3-C4: No evidence for degenerative disc disease. No disc bulge/herniation or protrusion. No Canal stenosis. Foramina are patent bilaterally. C4-C5: Moderate degenerative disc disease with posterior spondylosis, uncovertebral joint hypertrophy . There is moderate bilateral foraminal encroachment. Mild central stenosis with no evidence of spina l cord contact. C5-C6: Moderate to severe degenerative disc disease with posterior spondylosis. There is broad-based central left paracentral disc protrusion capped by spur resulting in mild to moderate canal stenosis. Uncovertebral joint hypertrophy contributes to mild to moderate bilateral foraminal encroachment. No spinal cord contact. C6-C7: Mild degenerative disc disease but no disc herniation or canal stenosis. Neural foramina paten t. C7-T1: No evidence for degenerative disc disease. No disc bulge/herniation or protrusion. No Canal stenosis. Foramina are patent bilaterally. Cervical segments are intact. There is normal alignment. Cervical spinal cord is of normal signal. Craniovertebral junction relationships are within normal limits. Incidental note at T2-3 of sagittal disc bulging. Tiny right thyroid cyst measuring 5 mm noted. IMPRESSION: 1. Multilevel degenerative disc disease with most marked findings at C4-5 and C5-C6 with posterior sp ondylosis and disc osteophyte complex resulting in canal stenosis and moderate bilateral foraminal en croachment. 2. Incidental note made of a subcentimeter right thyroid cyst. 3. Sagittal disc bulging T2-T3
== END | disposition home or self-care (01) ==
LOC: RADMRIMAIN 12:53
PROVIDERS: ATTEND Psychiatry & Neurology Neurology
DX: M48.02 Spinal stenosis, cervical region (principal); M99.71 Connective tissue and disc stenosis of intervertebral foramina of cervical region; M50.321 Other cervical disc degeneration at C4-C5 level; M50.322 Other cervical disc degeneration at C5-C6 level; M51.24 Other intervertebral disc displacement, thoracic region; M47.812 Spondylosis without myelopathy or radiculopathy, cervical region; M25.78 Osteophyte, vertebrae; R29.2 Abnormal reflex; R29.3 Abnormal posture; R53.1 Weakness
CPT/HCPCS: 72141

== ENCOUNTER → 2016-10-19 | Outpatient (CLI) | payer BC ==
--- NOTE | 2016-10-21 00:07 | MR ---
EXAMINATION TYPE: MR hip LT wo con DATE OF EXAM: 10/19/2016 COMPARISON: 11/14/2015 HISTORY: Lt hip pain Standard multiplanar, multisequence MRI departmental protocol Multiplanar, multisequence images of the left hip were acquired. FINDINGS: The pelvic ring appears intact. Sacroiliac joints appear normal. Proximal femurs are intact . Hip joint spaces are fairly well-maintained. There is no sign of hip dysplasia. I see no fracture. There is no evidence of avascular necrosis. There is evidence for a very minimal left hip joint effus ion. There is hypertrophic spurring of the lateral left acetabulum. IMPRESSION: There is some hypertrophic degenerative changes in the left hip joint compared to the right with smal l joint effusion. This could relate to osteoarthritis and synovitis. No evidence of avascular necrosi s. I see no significant change compared to old exam.
== END | disposition home or self-care (01) ==
LOC: RADMRIMAIN 12:53
PROVIDERS: ATTEND Orthopaedic Surgery
DX: M16.12 Unilateral primary osteoarthritis, left hip (principal)

== ENCOUNTER → 2016-10-20 | Outpatient (CLI) | payer BC ==
--- NOTE | 2016-10-20 16:49 | PN ---
A 51-year-old female patient with severe obstructive sleep apnea that has been difficult to treat because of treatment emergent central apneas. The patient is coming in today for a compliancy follow-up. Note that the patient has severe TIBURCIO and she was found to have an apnea-hypopnea index of 96.4. She also demonstrates severe nocturnal oxygen desaturation and she was dropping her pulse ox as low as 57%. Following that, the patient underwent a CPAP titration that was ineffective. The patient had treatment emergent central apneas and this was obviously noted during the titration. The patient was given a brief trial of BiPAP, which seems to be better than CPAP therapy; however, based on the compliancy data that was collected today the numbers are still poor. I reviewed the compliance data over the past 30 days and the patient is utilizing her CPAP 27 out of 30 days. She is initiating around 5.1 hours of BiPAP use every night and this tells me that the patient is really committed to the treatment. The two problems are the poor mask seal as the patient is having decreased leaks around her AirFit P10 nasal pillows. At the same time, the patient has residual obstructive and central sleep apnea. The overall apnea-hypopnea index was 32. The central apnea index was 10.7. As such, the patient's obstructive sleep apnea is not effectively treated and the patient is having a significant number of central apneas in addition to a poor mask seal. Clinically the patient improved. She is benefiting from the treatment. However, her success is not great still for the above-mentioned problems. BP is 134/99, pulse 73, respirations 16. Wellston score 16, temperature 98.1. Weight is 218. GENERAL APPEARANCE: Calm, comfortable. HEENT: Short neck, crowding posterior pharynx with significant crowding of posterior pharynx. LUNGS: Clear to auscultation. HEART: Sounds are regular rate and rhythm. Normal S1, S2. No S3, no S4. No murmurs. ABDOMEN: Soft, nontender. No organomegaly. EXTREMITIES: No edema. No cyanosis, or clubbing. IMPRESSION: 1. Severe symptomatic obstructive sleep apnea with an AHI of 96. The patient failed CPAP and the patient is currently failing BiPAP. The patient has complex sleep apnea with treatment emergent central apneas and this was noted during CPAP and BiPAP treatment. Currently she is on a BiPAP at a pressure of 15/11 and despite that she is still having obstructive respiratory events and central respiratory events. 2. Chronic hypersomnia, improved though the improvement is rather limited. 3. Increased air leaks around the AirFit P10 nasal pillows with a leak factor of 53 liters per minute. 4. Chronic hypersomnia. 5. Hypertension. 6. Hypothyroidism. 7. Chronic back pain. 8. Chronic generalized anxiety disorder. PLAN: 1. I will switch this patient to an ASV unit. ASV titration was trialed on this patient during her last titration and this was successful. The recommended settings for the ASV will be an EPAP minimum of 10, maximum of 15, pressure support minimum of 6 and a maximum of 15. 2. The patient will be given also an alternative nasal pillow, which will be Mccrary FX nasal pillow. 3. The patient will be seeing me back in 6 weeks' time for compliancy recheck.
== END ==
LOC: SLEEP 13:04
PROVIDERS: ATTEND Internal Medicine Critical Care Medicine
DX: G47.33 Obstructive sleep apnea (adult) (pediatric) (principal); G47.10 Hypersomnia, unspecified; I10 Essential (primary) hypertension; E03.9 Hypothyroidism, unspecified; F41.9 Anxiety disorder, unspecified; M54.9 Dorsalgia, unspecified; G89.29 Other chronic pain

== ENCOUNTER → 2016-11-02 | Outpatient (CLI) | payer BC ==
--- NOTE | 2016-11-02 09:06 | MR ---
EXAMINATION TYPE: MR knee RT wo con DATE OF EXAM: 11/02/2016 8:20 AM COMPARISON: NONE HISTORY: Rt knee pain TECHNIQUE: Multiplanar, multiecho imaging of the right knee is performed without IV contrast. FINDINGS: There is a small joint effusion. There is no significant chondromalacia affecting the medial or lateral femoral condyles. There is gra de I to II chondromalacia involving the medial patellar facet.. There is a discoid meniscus laterally. The medial meniscus is unremarkable. There is no evidence of a meniscal tear. Both the anterior and posterior cruciate ligaments are intact. Both the medial and lateral collateral ligaments are intact. The iliotibial band inserts normally upo n Gerdy's tubercle. The popliteus muscle and tendon are unremarkable. Both the quadriceps and patellar tendons are intact. There is no significant swelling in the Hoffa fa t space. IMPRESSION: 1. CHONDROMALACIA DESCRIBED. 2. DISCOID LATERAL MENISCUS. 3. NO DEFINITE MENISCAL OR LIGAMENTOUS INJURY.
== END | disposition home or self-care (01) ==
LOC: RADMRIMAIN 07:45
PROVIDERS: ATTEND Orthopaedic Surgery
DX: M94.261 Chondromalacia, right knee (principal)

== ENCOUNTER → 2016-12-01 | Outpatient (CLI) | payer BC ==
--- NOTE | 2016-12-02 05:21 | PN ---
A 51-year-old female patient with severe TIBURCIO with difficulty with initial CPAP/ BiPAP treatment due to treatment emergent central apneas. The patient had a baseline AHI of 96.4. She also demonstrates severe nocturnal oxygen desaturation. She underwent CPAP titration that was ineffective. She had treatment emergent central apneas and this was noted at the time of the titration. The patient was given a trial of BiPAP, which did better than CPAP, however, continues to have poor compliancy and poor control in terms of obstructive sleep apnea. Based on that, the patient underwent an ASV titration and today she is coming in for a compliancy check. Her ASV setting includes an EPAP minimum of 10, maximum of 15. Pressure support minimum of 6 and maximum of 15. The patient is using a Mccrary FX nasal pillow. Over the past few days, she was in a location where there was no power and she was not able to use her ASV machine. However, it seems that the compliancy is improving and the patient 's average ASV use is around 4.6 hours per night. She is having excessive leaks around the nose mask ( ) 2 L per minute. Yet her AHI while on treatment is down to 13. Her ASV use for more 4 hours is 17 out of the past 30 days. Her Melvin score is still and she is improving and she is less somnolent and sleepy during the day. Her current Melvin score is at 16. BP is 138/98, pulse 106, respiration is 16, temperature 98.3. Weight is 209. Saturations 96% on room air. GENERAL APPEARANCE: Calm, comfortable. HEENT: Short neck, crowding of posterior pharynx. There is no goiter or neck mass. LUNGS: Clear to auscultation. HEART: Sounds regular rate and rhythm. Normal S1, S2. No murmurs. ABDOMEN: Soft, nontender. No organomegaly. EXTREMITIES: No edema, no cyanosis or clubbing. IMPRESSION: 1. Severe symptomatic obstructive sleep apnea, AHI of 96. Failed CPAP and BiPAP. Currently on ASV mode of treatment. The patient had treatment emergent central apneas. 2. Chronic hypersomnia. 3 Hypertension. 4. Hypothyroidism. 5. Chronic back pain. 6. Generalized anxiety disorder. PLAN: Will demand more compliance with ASV treatment. The patient will be kept on the same setting. She was further educated on the use of her nose pillow. Mccrary FX will give the ability to this patient to secure the mask more effectively and prevent any air leaks. She is committed to the treatment. Unfortunately, she will be losing her insurance over the next few weeks. I am hoping that she may be able to keep on her machine and I will be glad to see her in the future for any treatment problems or any other complications. Encourage weight loss and implement the sleep hygiene measures and will continue to follow. RYANN
== END ==
LOC: SLEEP 13:37
PROVIDERS: ATTEND Internal Medicine Critical Care Medicine
DX: G47.33 Obstructive sleep apnea (adult) (pediatric) (principal); G47.10 Hypersomnia, unspecified; I10 Essential (primary) hypertension; E03.9 Hypothyroidism, unspecified; F41.9 Anxiety disorder, unspecified

== ENCOUNTER 2016-12-07 11:23 | Day surgery (SDC) | payer BC ==
--- NOTE | 2016-11-19 05:19 | HP ---
Surgery is 11/19/16. Giovana Golden is a 51-year-old patient seen with a symptomatic soft tissue mass left middle finger. We discussed options. She elected to proceed with surgical excision. Consent was obtained. Her past medical history is depression, hypertension, hypothyroidism, gastroesophageal reflux disease. PAST SURGICAL HISTORY: Breast biopsy. DAILY MEDICATIONS: 1. Abilify. 2. Hyzaar. 3. Prilosec. 4. Synthroid., 5. Xanax. ALLERGIES: None. SOCIAL HISTORY: Patient current smokes cigarettes. PHYSICAL EVALUATION OF THE LEFT MIDDLE FINGER: There is a soft tissue mass along the volar aspect of the PIP joint measuring about 3 mm x 3 mm, which is tender to palpation. It is freely mobile. There is no discoloration. She has good range of motion at the MP, PIP and DIP joints. Distal neurovascular exam is intact. IMPRESSION: Symptomatic soft tissue mass left middle finger. PLAN: Excision symptomatic soft tissue mass left middle finger. RYANN
[2016-11-30 12:05] VITALS: BMI 33.3
--- NOTE | 2016-12-06 13:50 | HP ---
DATE OF SURGERY: 12/07/2016 Giovana Golden is a 51-year-old patient seen with progressive right knee pain. After treatment options discussed, she elected to proceed with right knee arthroplasty. Consent was obtained. Past medical history is hypertension, gastroesophageal reflux disease, hypothyroidism. Past surgical history is breast biopsy. DAILY MEDICATIONS: Hyzaar, Pacific, Prilosec, Synthroid, Xanax. ALLERGIES: NONE. SOCIAL HISTORY: Patient currently smokes cigarettes. PHYSICAL EVALUATION OF THE RIGHT HIP: Range of motion is 0 to 125 degrees. Tenderness along the medial joint line. Positive medial McMurrays.Crepitance along the medial patellar and femoral compartments with range of motion. Pain with patellofemoral compression. Ligaments stable. Hip rotation without pain. Distal neurovascular exam is intact. Radiographs of the right knee revealed moderate medial compartment osteoarthritis. MRI of the right knee revealed patellar chondromalacia and discoid lateral meniscus. IMPRESSION: Internal derangement of the right knee with meniscal tear versus osteochondral tear. PLAN: Right knee arthroscopy with partial meniscectomy versus chondroplasty and debridement. RYANN
[~2016-12-07 11:23] MED LIST: DEXAMETHASONE SOD PHOSPHATE 10 MG/ML 1 ML VIAL IV ONE; HYDROmorphone 1 MG/ML 1 ML SYRINGE IVP PRN; LACTATED RINGERS 1,000 ML IV SCH; LIDOCAINE 1% 20 ML VIAL (10MG/ML) FOR IV START INTRADERMA PRN; MIDAZOLAM 2 MG/2 ML VIAL IV PRN; ONDANSETRON 4 MG/2 ML VIAL IVP ONE; SCOPOLAMINE 1.5MG/72HR PATCH TRANSDERM ONE; ceFAZolin 2 GM in SODIUM CHLORIDE 0.9% 100 ML IVPB ONE
[2016-12-07] MEDS ORDERED: LIDOCAINE 1% INJ 10MG/ML (20 ML MDV) ONE (14:00)
[2016-12-07] MEDS ORDERED: PROPOFOL 10 MG/ML 20 ML VIAL IV ONE (14:00)
[2016-12-07] MEDS ORDERED: BUPIVACAINE (PF) 0.25% 30 ML VIAL SQ ONE (14:51)
--- NOTE | 2016-12-07 15:07 | P.OP ---
Date of Procedure: 12/07/16 Preoperative Diagnosis: Internal derangement right knee Postoperative Diagnosis: 1. Tear medial and lateral meniscus right knee 2. Grade 2/3 chondromalacia femoral sulcus right knee 3. Reactive synovitis medial and suprapatellar compartments right knee Procedure(s) Performed: 1. Arthroscopic partial medial and lateral meniscectomy right knee 2. Arthroscopic chondroplasty femoral sulcus right knee 3. Arthroscopic partial synovectomy medial and suprapatellar compartments right knee Implants: Anesthesia: local, spinal Surgeon: Jesus Miller Estimated Blood Loss (ml): 10 Pathology: none sent Condition: stable Disposition: PACU Indications for Procedure: 51-year-old patient seen with progressive right knee pain. After having treatment options discussed, she elected to proceed with right knee arthroscopy. Operative Findings: See description of procedure Description of Procedure: Patient was taken to the operative suite. Patient underwent a spinal anesthetic by the department of anesthesia. Patient was given preoperative antibiotics. The right lower extremity was placed in a well-padded arthroscopic leg garnica. The right leg was prepped and draped in the normal sterile orthopedic fashion. A lateral parapatellar and suprapatellar incision was made. Trochars were inserted. Arthroscopy was initiated. Suprapatellar pouch revealed thick reactive synovitis. The patellofemoral joint appeared articulate congruently. There was grade 2/3 chondromalacia of the medial femoral sulcus with some osteochondral tears present. The patella was unremarkable.. The scope was guided into the medial gutter. No loose bodies or plica were identified. The scope was then guided into the medial compartment. A medial parapatellar incision was made. Trocar inserted followed by probe. There was a small radial tear in the posterior horn medial meniscus. There was some reactive synovitis noted anteriorly. There were no loose bodies. There were no osteochondral deficits or chondromalacia appreciated. A partial medial meniscectomy was performed on a stable tissue. I performed a partial synovectomy. The residual meniscus was stable. Scope and probe were then guided into the intercondylar notch. Cruciates were identified, probed and found to be stable. The scope and probe were then guided into lateral compartment. There was a radial tear in the posterior horn and midbody areas lateral meniscus. There were some grade 1 chondral malacia changes of the tibial plateau. No loose bodies, no osteochondral tears and no synovitis was noted. A partial lateral meniscectomy was performed on a stable tissue. The residual meniscus was probed and found to be stable. The scope was in guided back into the suprapatellar compartment. I introduced a motorized shaver into the super compartment. I debrided some piecemeal fragments of meniscus. A chondroplasty femoral sulcus was performed. I performed a partial synovectomy. Shaver was removed. I took more look on the entire knee, no residual debris. Instruments were now removed from the joint. The joint was infiltrated with .25% Marcaine. Steri-Strips were applied to the portal sites. Sterile dressings were applied. The patient was placed into a CODY hose. No tourniquet was utilized. The patient was awakened, transferred to a bed and taken to recovery stable satisfactory condition.
[2016-12-07 15:14] VITALS: TEMP 97.2
[2016-12-07 15:52] VITALS: RESP 18
[2016-12-07] MEDS ORDERED: LACTATED RINGERS 1,000 ML IV ONE (17:47)
[2016-12-07 18:43] VITALS: BP 134/89; PULSE 80
== END 2016-12-07 19:32 | disposition home or self-care (01) ==
LOC: OR 11:23
PROVIDERS: ATTEND Orthopaedic Surgery
DX: S83.241A Other tear of medial meniscus, current injury, right knee, initial encounter (principal); S83.281A Other tear of lateral meniscus, current injury, right knee, initial encounter; X58.XXXA Exposure to other specified factors, initial encounter; M94.261 Chondromalacia, right knee; M65.861 Other synovitis and tenosynovitis, right lower leg; I10 Essential (primary) hypertension; K21.9 Gastro-esophageal reflux disease without esophagitis; E03.9 Hypothyroidism, unspecified; F17.210 Nicotine dependence, cigarettes, uncomplicated; E78.5 Hyperlipidemia, unspecified; G47.33 Obstructive sleep apnea (adult) (pediatric); F41.9 Anxiety disorder, unspecified; F32.9 Major depressive disorder, single episode, unspecified; Z79.891 Long term (current) use of opiate analgesic; Z79.899 Other long term (current) drug therapy
CPT/HCPCS: 29880; J1100; J0690; J2405; J2001; J2704

== ENCOUNTER → 2018-10-07 | Outpatient (CLI) | payer MEDICARE ==
--- NOTE | 2018-10-07 13:40 | XR ---
EXAMINATION TYPE: XR chest 2V DATE OF EXAM: 10/07/2018 COMPARISON: Chest x-ray August 07, 2016 HISTORY: Cough and congestion for one month TECHNIQUE: Frontal and lateral views of the chest are obtained. FINDINGS: There is chronic parenchymal changes bilaterally without suspicious new focal air space op acity, pleural effusion, or pneumothorax seen. The cardiac silhouette size is within normal limits. The osseous structures are intact. IMPRESSION: Chronic changes without acute pulmonary process.
== END ==
LOC: RADXRMAIN 13:21
PROVIDERS: ATTEND Family Medicine
DX: R05 Cough (principal); R06.02 Shortness of breath
CPT/HCPCS: 71046

== ENCOUNTER → 2020-11-29 | Outpatient (CLI) | payer MEDICARE, OTHER ==
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
== END | disposition home or self-care (01) ==
LOC: RADXRMAIN 10:56
PROVIDERS: ATTEND Family Medicine
DX: G89.29 Other chronic pain (principal); M54.9 Dorsalgia, unspecified; V89.2XXA Person injured in unspecified motor-vehicle accident, traffic, initial encounter
CPT/HCPCS: 72110; 72170

== ENCOUNTER → 2020-12-30 | Outpatient (CLI) | payer MEDICARE ==
--- NOTE | 2020-12-30 09:17 | CT ---
EXAMINATION TYPE: CT lumbar spine wo con DATE OF EXAM: 12/30/2020 COMPARISON: Radiograph 11/29/2020 HISTORY: 55-year-old female M54.5, Low back pain TECHNIQUE: Contiguous axial scanning of the lumbar spine without IV contrast. Coronal and sagittal re constructions performed. CT DLP: 1248.5 mGycm Automated exposure control for dose reduction was used. FINDINGS: There are postsurgical changes of L4-L5 posterior and interbody lumbar fusion. Scattered mild facet degenerative change. Degenerative trace grade 1 retrolisthesis L1-L2. Mild multilevel degenerative disc disease with disc bulging. At T12-L1, minimal bulging disc. No spinal canal or foraminal stenosis. At L1-L2, there is diffuse disc bulge is eccentrically greater off towards the right. This impresses on the ventral thecal sac but does not contribute to any significant spinal canal stenosis. There may be slight encroachment onto the right lateral recess and disc material probably approaches the trave rsing right L2 nerve root. No neuroforaminal stenosis. At L2-L3, there is disc bulge impressing on the ventral thecal sac without significant canal or john inal stenosis. Mild facet arthropathy. At L3-L4, diffuse disc bulge and mild facet arthropathy. There is minimal inferior neural foraminal n arrowing on both sides. No significant spinal canal stenosis. At the fused L4-L5 level, there is some residual left intraforaminal disc osteophyte complex causing moderate narrowing of the neuroforamen. No evidence spinal canal stenosis. At L5-S1, no spinal canal or foraminal stenosis. IMPRESSION: 1. STATUS POST L4-L5 POSTERIOR AND INTERBODY FUSION. THERE IS RESIDUAL LEFT INTRAFORAMINAL DISC OSTEO PHYTE COMPLEX AT THIS LEVEL CAUSING MODERATE LEFT NEUROFORAMINAL STENOSIS. NO SPINAL CANAL STENOSIS. 2. DIFFUSE DISC BULGE ECCENTRIC TOWARDS THE RIGHT AT L1-L2 MAY ENCROACH ONTO THE RIGHT LATERAL RECESS AND DISC MATERIAL PROBABLY APPROACHES THE TRAVERSING RIGHT L2 NERVE ROOT HERE.
== END | disposition home or self-care (01) ==
LOC: RADCTMAIN 06:37
PROVIDERS: ATTEND Orthopaedic Surgery
DX: M48.061 Spinal stenosis, lumbar region without neurogenic claudication (principal); M25.78 Osteophyte, vertebrae; Z98.1 Arthrodesis status
CPT/HCPCS: 72131

== ENCOUNTER → 2021-10-29 | Outpatient (CLI) | payer MEDICARE ==
--- NOTE | 2021-10-29 15:35 | HP ---
HISTORY AND PHYSICAL REASON FOR ADMISSION: Surgery scheduled 10/30/2021. HISTORY OF PRESENT ILLNESS: Giovana Golden is a 56-year-old patient seen with progressive left shoulder pain. We discussed options for treatment. She elected to proceed with left shoulder arthroscopy. Consent obtained. PAST MEDICAL HISTORY: Hypothyroidism, hypertension, gastroesophageal reflux disease. PAST SURGICAL HISTORY: Breast biopsy. DAILY MEDICATIONS: Levothyroxine, losartan, omeprazole. ALLERGIES: None. SOCIAL HISTORY: She smokes cigarettes. PHYSICAL EVALUATION OF THE LEFT SHOULDER: Flexion is 100 degrees, abduction is 80 degrees. External rotation is 50 degrees with pain and significant weakness. Tenderness along the anterior lateral acromion rotator cuff insertion. Impingement positive at 9. Drop-arm sign is positive. Distal neurovascular exam is intact. RADIOGRAPHS: Left shoulder radiographs revealed a healed greater tuberosity fracture. MRI left shoulder revealed a subacute greater tuberosity fracture, partial tear in the rotator cuff tendon, partial biceps tendon tear. IMPRESSION: Left shoulder impingement with partial rotator cuff tear, partial long head biceps tendon tear and acromioclavicular joint osteoarthritis. PLAN: Left shoulder arthroscopy with subacromial decompression, possible arthroscopic rotator cuff repair, Rylie procedure, possible biceps tenotomy and debridement. Surgery is scheduled for 10/30/2021. MMODL / IJN: [id number] /
[2021-10-29 23:06] LABS: Basophils # (A) 0.13 X 10*3/uL (0.00-0.10); Basophils % (A) 1.4 %; Eosinophils # (A) 0.32 X 10*3/uL (0.04-0.35); Eosinophils % (A) 3.5 %; HCT 50.1 % (37.2-46.3); HGB 16.5 g/dL (12.0-15.0); Immature Grans, Automated 0.2 %; Lymphocytes # (A) 2.06 X 10*3/uL (0.90-5.00); Lymphocytes % (A) 22.2 %; MCH 31.8 pg (27.0-32.0); MCHC 32.9 g/dL (32.0-37.0); MCV 96.5 fL (80.0-97.0); Mean Platelet Volume 12.5 fL (9.5-12.2); Monocytes # (A) 0.63 X 10*3/uL (0.20-1.00); Monocytes % (A) 6.8 %; NRBC Per 100 WBC 0 /100 WBCS (0.0-0.0); Neutrophils % (A) 65.9 %; Platelet Count 377 X 10*3/uL (140-440); RBC 5.19 X 10*6/uL (4.10-5.20); RDW 13.6 % (11.5-14.5); WBC 9.26 X 10*3/uL (4.50-10.00)
[2021-10-29 23:24] LABS: Anion Gap 16.1 mmol/L (10.00-18.00); Carbon Dioxide 22.1 mmol/L (20.0-27.5); Potassium 4.4 mmol/L (3.5-5.5)
== END | disposition home or self-care (01) ==
LOC: LABPAT 14:51
PROVIDERS: ATTEND Orthopaedic Surgery
DX: Z01.812 Encounter for preprocedural laboratory examination (principal); M75.42 Impingement syndrome of left shoulder
CPT/HCPCS: 80051; 85025; 93005

== ENCOUNTER 2021-10-30 05:55 | Day surgery (SDC) | payer MEDICARE ==
[2021-09-30 09:50] VITALS: BMI 29.0
[2021-10-30] MEDS ORDERED: SCOPOLAMINE 1 MG/72 HR PATCH TRANSDERM ONE (06:13)
[2021-10-30] MEDS ORDERED: DEXAMETHASONE SOD PHOSPHATE 4 MG/ML 1 ML VIAL IV ONE (06:13)
[2021-10-30] MEDS ORDERED: LACTATED RINGERS 1,000 ML IV SCH (06:13)
[2021-10-30] MEDS ORDERED: LIDOCAINE 1% (10MG/ML) FOR IV START INTRADERMA PRN (06:13)
[2021-10-30] MEDS ORDERED: HYDROmorphone 0.5 MG/0.5 ML SYRINGE IVP PRN (06:13)
[2021-10-30] MEDS ORDERED: ONDANSETRON 4 MG/2 ML VIAL IVP ONE (06:13)
== END 2021-10-30 06:50 | disposition home or self-care (01) ==
LOC: OR 05:55
PROVIDERS: ATTEND Orthopaedic Surgery
DX: M75.42 Impingement syndrome of left shoulder (principal); Z53.8 Procedure and treatment not carried out for other reasons

== ENCOUNTER → 2022-11-03 | Outpatient (CLI) | payer MEDICARE ==
--- NOTE | 2022-11-03 21:10 | MR ---
EXAMINATION TYPE: MR lumbar spine wo/w con DATE OF EXAM: 11/03/2022 8:53 PM COMPARISON: NONE HISTORY: Low back pain, Spondylosis without myelopathy CONTRAST: The patient was injected with 8 mL intravenous Gadavist gadolinium contrast. Multiplanar, MultiSpin echo imaging of the lumbar spine was performed. L1-L2: Moderate to severe disc desiccation with subligamentous right paracentral disc herniation. The re is effacement of the ventral thecal sac with right lateral recess stenosis and right foraminal enc roachment. Facet joint arthropathy is seen. No evidence for central stenosis at this time. L2-L3: Mild disc desiccation with posterior disc bulge. Mild effacement of the ventral thecal sac wit hout herniation or central stenosis. Foramina are patent bilaterally. L3-L4: Mild disc desiccation with posterior disc bulge. Mild effacement of the ventral thecal sac wit hout herniation or central stenosis. Foramina are patent bilaterally. L4-L5: Postsurgical changes of fusion with pedicular screws in place. There is normal postoperative a lignment. There is no evidence for stenosis or neural foraminal encroachment. No disc herniation seen . L5-S1: Postsurgical changes of fusion with pedicular screws in place. There is normal postoperative a lignment. There is no evidence for stenosis or neural foraminal encroachment. No disc herniation seen . Lumbar segments are intact. No paraspinal masses are identified. Conus medullaris has a normal appe arance. Ventral spondylosis noted. IMPRESSION: 1. Multilevel degenerative disc disease. 2. Postoperative changes as discussed. 3. Right paracentral disc herniation at L1-2 with right lateral recess stenosis and foraminal encroac hment.
== END | disposition home or self-care (01) ==
LOC: RADMRIMAIN 18:38
PROVIDERS: ATTEND Physical Medicine & Rehabilitation
DX: M47.816 Spondylosis without myelopathy or radiculopathy, lumbar region (principal); M51.36 Other intervertebral disc degeneration, lumbar region; M99.73 Connective tissue and disc stenosis of intervertebral foramina of lumbar region
CPT/HCPCS: 72158; A9585

== ENCOUNTER → 2022-11-03 | Outpatient (CLI) | payer MEDICARE ==
--- NOTE | 2022-11-03 21:05 | MR ---
EXAMINATION TYPE: MR knee RT wo con DATE OF EXAM: 11/03/2022 8:52 PM COMPARISON: 11/02/2016 HISTORY: Rt knee pain and swelling FINDINGS: MEDIAL MENISCUS: Anterior and posterior horns are intact without tear. LATERAL MENISCUS: Anterior and posterior horns are intact without tear. Discoid lateral meniscus rede monstrated. CRUCIATE LIGAMENTS: The anterior and posterior cruciate ligaments are intact and unremarkable. COLLATERAL LIGAMENTS: The medial collateral ligament and lateral collateral ligament complex are intact and unremarkable. EXTENSOR MECHANISM: Visualized quadriceps and patellar tendons are intact. EFFUSION: No evidence for joint effusion. POPLITEAL CYST: 1.6 cm Conti's cyst. TRICOMPARTMENT SPACES: Mild degenerative narrowing medial tibiofemoral joint space and patellofemoral joint space with grade I chondromalacia patella. CARTILAGE: The articular cartilage is maintained without abnormal signal or full-thickness defect. BONE MARROW SIGNAL: No focal abnormal marrow signal is appreciated: OTHER: No additional significant abnormality is appreciated. IMPRESSION: 1. Changes of osteoarthritis. 2. Conti's cyst.
== END | disposition home or self-care (01) ==
LOC: RADMRIMAIN 18:32
PROVIDERS: ATTEND Orthopaedic Surgery
DX: M17.11 Unilateral primary osteoarthritis, right knee (principal); M71.21 Synovial cyst of popliteal space [Baker], right knee

== ENCOUNTER → 2022-11-17 | Outpatient (CLI) | payer MEDICARE ==
--- NOTE | 2022-11-22 10:24 | MR ---
EXAMINATION TYPE: MR shoulder LT wo con DATE OF EXAM: 11/17/2022 COMPARISON: None HISTORY: Left shoulder pain, surgery 1 year ago. TECHNIQUE: Multiplanar, multisequence imaging of the left shoulder is performed without contrast. FINDINGS: There is mild shoulder impingement secondary to marked degeneration of the acromioclavicular joint an d lateral downsloping acromion. There is some acromial bursitis. There are postsurgical changes of repair of a torn supraspinatus tendon. The tendon appears mildly th ickened consistent with tendinosis but no discrete tear. There is mild retraction of the musculotendi nous junction. The infraspinatus and subscapularis tendons are intact. The glenohumeral joint and cartilaginous labrum are normal. There is no joint effusion. The periarticular soft tissues are unremarkable. IMPRESSION: 1. Postsurgical changes of repair of a tear of the supraspinatus tendon of the rotator cuff. There is persistent mild retraction of the musculotendinous junction but no repeat tear. 2. No abnormality of the remaining tendons of the rotator cuff. 3. Moderate shoulder impingement secondary to degeneration of the acromioclavicular joint and lateral downsloping acromion. 4. No significant abnormality of the glenohumeral joint or cartilaginous labrum
== END | disposition home or self-care (01) ==
LOC: RADMRIMAIN 11:20
PROVIDERS: ATTEND Orthopaedic Surgery
DX: M19.012 Primary osteoarthritis, left shoulder (principal); M25.812 Other specified joint disorders, left shoulder; M75.102 Unspecified rotator cuff tear or rupture of left shoulder, not specified as traumatic; Z98.890 Other specified postprocedural states

== ENCOUNTER → 2023-07-20 | Outpatient (CLI) | payer MEDICARE ==
--- NOTE | 2023-08-05 10:21 | P.CEMON ---
[14] DAY EVENT MONITOR REPORT: INDICATION: Paroxysmal atrial fibrillation I48. START DATE: 07/20/2023 END DATE: 07/30/2023 Patient wore the monitor for 10 days which is 93% of total time. FINDINGS: Overall [good] quality study. Patient's baseline rhythm was sinus tachycardia. Baseline heart rate was 133 bpm. Throughout the study patient was noticed to be in sinus tachycardia with maximum reported heart rate of 153 bpm. There were couple of instances of paroxysmal atrial tachycardia where there was clear evidence of P wave and most likely does not seems to be atrial fibrill ation. There were no observed atrial fibrillation, atrial flutter or sustained ventricular rhythm. There were no observed sinus pauses which were more than 2 second long. Patient symptoms correlation: Patient reported symptoms of shortness of breath which corresponded to sinus tachycardia average heart rate around 140 beats per min Conclusion Sinus tachycardia predominated during the study. No clear evidence of atrial fibrillation or any ventricular arrhythmias. No pauses. Clinical correlation recommended. Would recommend working up the underlying cause of sinus tachycardia. Porfirio Chua MD, FACC, RPVI Thank you for allowing [facility] to participate in this patient's care. Feel free to reach out in case of any followup questions. Please CC this report to Dr. Deshaun Lantigua DO
--- NOTE | 2023-08-06 11:56 | EM ---
[14] DAY EVENT MONITOR REPORT: INDICATION: Paroxysmal atrial fibrillation I48. START DATE: 07/20/2023 END DATE: 07/30/2023 Patient wore the monitor for 10 days which is 93% of total time. FINDINGS: Overall [good] quality study. Patient's baseline rhythm was sinus tachycardia. Baseline heart rate was 133 bpm. Throughout the study patient was noticed to be in sinus tachycardia with maximum reported heart rate of 153 bpm. There were couple of instances of paroxysmal atrial tachycardia where there was clear evidence of P wave and most likely does not seems to be atrial fibrillation. There were no observed atrial fibrillation, atrial flutter or sustained ventricular rhythm. There were no observed sinus pauses which were more than 2 second long. Patient symptoms correlation: Patient reported symptoms of shortness of breath which corresponded to sinus tachycardia average heart rate around 140 beats per min Conclusion Sinus tachycardia predominated during the study. No clear evidence of atrial fibrillation or any ventricular arrhythmias. No pauses. Clinical correlation recommended. Would recommend working up the underlying cause of sinus tachycardia. Porfirio Chua MD, FACC, RPVI Thank you for allowing [facility] to participate in this patient's care. Feel free to reach out in case of any followup questions. Please CC this report to DO RYANN Panda
== END | disposition home or self-care (01) ==
LOC: RADECHMAIN 07:28
PROVIDERS: ATTEND Family Medicine
DX: R00.0 Tachycardia, unspecified (principal); I48.0 Paroxysmal atrial fibrillation
CPT/HCPCS: 93270

== ENCOUNTER → 2023-07-20 | Outpatient (CLI) | payer MEDICARE ==
[2023-07-20 11:10] LABS: Reticulocyte % 1.78 % (0.10-1.80)
[2023-07-20 14:53] LABS: Basophils # (A) 0.09 X 10*3/uL (0.00-0.10); Basophils % (A) 1.1 %; Eosinophils # (A) 0.27 X 10*3/uL (0.04-0.35); Eosinophils % (A) 3.4 %; HCT 49.9 % (37.2-46.3); HGB 16.2 g/dL (12.0-15.0); Lymphocytes # (A) 3.13 X 10*3/uL (0.90-5.00); Lymphocytes % (A) 39.5 %; MCH 31.4 pg (27.0-32.0); MCHC 32.5 g/dL (32.0-37.0); MCV 96.7 FL (80.0-97.0); Mean Platelet Volume 12.9 FL (9.5-12.2); Monocytes # (A) 0.55 X 10*3/uL (0.20-1.00); Monocytes % (A) 6.9 %; NRBC Per 100 WBC 0 X 10*3/uL (0.00-0.01); Neutrophils # (A) 3.87 X 10*3/uL (1.80-7.70); Neutrophils % (A) 48.8 %; Platelet Count 295 X 10*3/uL (140-440); RBC 5.16 X 10*6/uL (4.10-5.20); RDW 14.2 % (11.5-14.5); WBC 7.93 X 10*3/uL (4.50-10.00)
[2023-07-20 16:51] LABS: % Iron Saturation 17.34 (12.00-45.00); ALT 12 U/L (8-44); AST 25 U/L (13-35); Albumin 4.3 g/dL (3.8-4.9); Albumin/Globulin Ratio 1.48 Ratio (1.60-3.17); Alkaline Phosphatase 105 U/L (41-126); BUN/Creat Ratio 5.75 Ratio (12.00-20.00); Blood Urea Nitrogen 9.2 mg/dL (9.0-27.0); Carbon Dioxide 24.1 mmol/L (21.6-31.8); Chloride 104 mmol/L (96-109); Chol/HDL Ratio 3.36 Ratio; Globulin 2.9 g/dL (1.6-3.3); Glucose 127 mg/dL (70-110); Iron 77 UG/DL (50-170); LDL Cholesterol,Calculated 139.5 mg/dL (0.0-131.0); Potassium 4.6 mmol/L (3.5-5.5); Sodium 140 mmol/L (135-145); Total Bilirubin 0.4 mg/dL (0.3-1.2); Total Iron Binding Capacity 444 UG/DL (228-460); Total Protein 7.2 g/dL (6.2-8.2)
[2023-07-20 16:52] LABS: Ferritin 23.2 ng/mL (10.0-291.0)
[2023-07-20 18:23] LABS: EBV-EA (IgG) >8.0 AI; EBV-EBNA(IgG) >8.0; EBV-VCA (IgG) >8.0 AI; EBV-VCA (IgM) <0.2 AI
== END | disposition home or self-care (01) ==
LOC: LABWHC1 08:10
PROVIDERS: ATTEND Family Medicine
DX: R07.89 Other chest pain (principal); R53.83 Other fatigue
CPT/HCPCS: 36415; 80053; 80061; 82728; 83036; 83540; 83550; 85025; 85045; 85379; 86663; 86664; 86665

== ENCOUNTER → 2023-09-08 | Outpatient (CLI) | payer MEDICARE ==
--- NOTE | 2023-09-08 10:51 | US ---
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 History of: Smoker: Current Smoker Hypertension: Takes medication Diabetic: No Hyperlipidemia: No TIA/CVA: No Previous Vascular Surgery: No CAD: No LA: No Vascular Ulcers: No Claudication: No Gangrene: No Doppler Waveforms: Right: Axillary: Biphasic Brachial: Biphasic Radial: Monophasic Ulnar: Biphasic Left: Axillary: Biphasic Brachial: Biphasic Radial: Biphasic Ulnar: Monophasic Wrist Brachial Indices: Right: 1.3 Left: 1.2 IMPRESSION: No significant peripheral vascular disease. Symmetrical wrist brachial indices.
== END | disposition home or self-care (01) ==
LOC: RADUSWWP 10:01
PROVIDERS: ATTEND Family Medicine
DX: Q25.1 Coarctation of aorta (principal); I10 Essential (primary) hypertension
CPT/HCPCS: 93922

== ENCOUNTER → 2024-03-17 | Outpatient (CLI) | payer MEDICARE ==
--- NOTE | 2024-03-18 12:29 | MR ---
EXAMINATION TYPE: MR knee LT wo con DATE OF EXAM: 03/17/2024 COMPARISON: None HISTORY: Left knee pain, swelling and locks x3 months, Fell TECHNIQUE: Multiplanar, multisequence imaging of the left knee is performed without IV contrast. FINDINGS: There is no bone contusion or fracture. There is no joint effusion There is no ligamentous injury. There is a small focal area of increased signal intensity in the inferior aspect of the posterior hor n of the medial meniscus and a small tear extending to the inferior surface of the meniscus cannot be excluded. The lateral meniscus is intact. The articular cartilages are well preserved. The patellar quadriceps tendons are normal. The anterior fat pads are normal. IMPRESSION: Cannot exclude a tiny tear of the posterior horn of the medial meniscus as described above. No other significant abnormality seen [facility], , 03/18/2024 12:27 PM
== END | disposition home or self-care (01) ==
LOC: RADMRIMAIN 18:39
PROVIDERS: ATTEND Orthopaedic Surgery
DX: M25.562 Pain in left knee (principal)

== ENCOUNTER → 2024-07-07 | Outpatient (CLI) | payer MEDICARE ==
[2024-07-07 17:10] LABS: % Iron Saturation 31.98 (12.00-45.00); Albumin 4.4 g/dL (3.8-4.9); Blood Urea Nitrogen 10.8 mg/dL (9.0-27.0); Carbon Dioxide 25.6 mmol/L (21.6-31.8); Chloride 104 mmol/L (96-109); Ferritin 46.3 ng/mL (10.0-291.0); Glucose 131 mg/dL (70-110); Iron 134 UG/DL (50-170); Magnesium 2.2 mg/dL (1.5-2.4); Phosphorus 3.9 mg/dL (2.4-5.1); Potassium 4.4 mmol/L (3.5-5.5); Sodium 143 mmol/L (135-145); Total Iron Binding Capacity 419 UG/DL (228-460); Uric Acid 6.8 mg/dL (2.9-7.7)
[2024-07-07 17:56] LABS: Basophils # (A) 0.12 X 10*3/uL (0.00-0.10); Basophils % (A) 1.5 %; Eosinophils # (A) 0.23 X 10*3/uL (0.04-0.35); Eosinophils % (A) 2.9 %; HCT 51.1 % (37.2-46.3); HGB 16.4 g/dL (12.0-15.0); Lymphocytes # (A) 2.43 X 10*3/uL (0.90-5.00); Lymphocytes % (A) 30.3 %; MCH 30.9 pg (27.0-32.0); MCHC 32.1 g/dL (32.0-37.0); MCV 96.2 FL (80.0-97.0); Mean Platelet Volume 12.5 FL (9.5-12.2); Monocytes # (A) 0.61 X 10*3/uL (0.20-1.00); Monocytes % (A) 7.6 %; NRBC Per 100 WBC 0 X 10*3/uL (0.00-0.01); Neutrophils % (A) 57.3 %; Platelet Count 302 X 10*3/uL (140-440); RBC 5.31 X 10*6/uL (4.10-5.20); RDW 14.7 % (11.5-14.5); WBC 8.02 X 10*3/uL (4.50-10.00)
[2024-07-07 18:49] LABS: Appearance,Urine Cloudy (Clear); Bilirubin,Urine Negative (Negative); Blood,Urine Negative (Negative); Color,Urine Dark Yellow (Yellow); Ketones,Urine Trace (Negative); Nitrite,Urine Negative (Negative); PH, Urine 5.5; Specific Gravity,Urine 1.026 (1.001-1.030)
[2024-07-07 20:36] LABS: Bacteria,Urine 3+ (None Seen)
== END | disposition home or self-care (01) ==
LOC: LABWHC1 12:23
PROVIDERS: ATTEND Internal Medicine Nephrology
DX: N18.32 Chronic kidney disease, stage 3b (principal); D63.1 Anemia in chronic kidney disease; N25.81 Secondary hyperparathyroidism of renal origin; E83.39 Other disorders of phosphorus metabolism; M10.9 Gout, unspecified; N39.0 Urinary tract infection, site not specified; R80.9 Proteinuria, unspecified
CPT/HCPCS: 36415; 80048; 81001; 82040; 82043; 82306; 82570; 82728; 83540; 83550; 83735; 83970; 84100; 84550; 85025

== ENCOUNTER → 2024-09-28 | Outpatient (CLI) | payer MEDICARE | END | disposition home or self-care (01) | LOC: RADUSWWP 14:32 | PROVIDERS: ATTEND Internal Medicine Nephrology | DX: Z53.9 Procedure and treatment not carried out, unspecified reason (principal) ==